=== PATIENT | female | born 1960 | race Caucasian/White ===

== ENCOUNTER 2017-07-06 18:47 | Emergency (ER) | payer MEDICAID ==
[~2017-07-06] VITALS: Ht 157.5 cm; Wt 77.1 kg
[~2017-07-06 18:47] MED LIST: CYCL-1 PO; IBUP-1984 PO; MULT-1179 PO; NIF150C PO
[2017-07-06] MEDS ORDERED: ACET1TAB12 PO (20:53)
[2017-07-06] MEDS ORDERED: FAMO-128 PO (20:53)
[2017-07-06] MEDS ORDERED: IBUP-1984 PO (20:53)
[2017-07-06 21:05] VITALS: BP 163/68
== END 2017-07-06 21:06 | disposition home or self-care (01) ==
LOC: ER 18:48
DX: M25.512 Pain in left shoulder (principal); G89.29 Other chronic pain; F12.10 Cannabis abuse, uncomplicated; F19.10 Other psychoactive substance abuse, uncomplicated; Z88.8 Allergy status to other drugs, medicaments and biological substances; Z98.890 Other specified postprocedural states
CPT/HCPCS: 99282

== ENCOUNTER 2019-03-22 03:54 | Emergency (ER) | payer MEDICAID ==
[~2019-03-22] VITALS: Ht 167.6 cm; Wt 75.5 kg
[~2019-03-22 03:54] MED LIST changes: +ACET1TAB12 PO; +FAMO-128 PO
[2019-03-22 03:58] VITALS: BP 172/104
[2019-03-22] MEDS ORDERED: DIAZ-351 PO (05:11)
[2019-03-22] MEDS ORDERED: METH-360 PO (05:11)
[2019-03-22] MEDS ORDERED: PRED20TA PO (05:11)
[2019-03-22] MEDS ORDERED: diazepam 5mg tablet PO ONE (05:15)
[2019-03-22] MEDS ORDERED: acetaminophen 325mg tablet PO ONE (05:15)
[2019-03-22] MEDS ORDERED: dexamethasone 4mg tablet PO ONE (05:15)
== END 2019-03-22 05:27 | disposition home or self-care (01) ==
LOC: ER 03:54
DX: S39.012A Strain of muscle, fascia and tendon of lower back, initial encounter (principal); M54.42 Lumbago with sciatica, left side; E78.00 Pure hypercholesterolemia, unspecified; G89.29 Other chronic pain; F31.9 Bipolar disorder, unspecified; F12.90 Cannabis use, unspecified, uncomplicated; F15.90 Other stimulant use, unspecified, uncomplicated; Z90.49 Acquired absence of other specified parts of digestive tract; Z98.890 Other specified postprocedural states; Z88.6 Allergy status to analgesic agent; Z88.8 Allergy status to other drugs, medicaments and biological substances; Z79.899 Other long term (current) drug therapy; X58.XXXA Exposure to other specified factors, initial encounter; Y93.89 Activity, other specified; Y92.89 Other specified places as the place of occurrence of the external cause; Y99.8 Other external cause status
CPT/HCPCS: 99284

== ENCOUNTER 2019-07-03 11:24 | Inpatient (IN) | payer MEDICAID ==
[~2019-07-03] VITALS: Ht 161.3 cm; Wt 79.0 kg
[~2019-07-03 11:24] MED LIST changes: +DIAZ-351 PO; +METH-360 PO
[2019-07-03 11:51] LABS: CLARITY,URINE SLIGHTLY CLOUDY (Clear); COLOR,URINE DARK YELLOW (Yellow); GLUCOSE, URINE NEGATIVE (Neg); KETONES,URINE NEGATIVE (Neg); LEUKOCYTE ESTERASE ,URINE NEGATIVE (Neg); NITRITES, URINE POSITIVE (Neg); OCCULT BLOOD,URINE LARGE (Neg); PH,URINE 5.5 (4.8-8.0); PROTEIN,URINE NEGATIVE (Neg); UA COLLECTION TYPE CLN CATCH MIDSTREAM
[2019-07-03 11:57] LABS: BACTERIA,URINE 4+ /HPF (Neg); MUCUS STRANDS MANY /LPF (Neg); SQUAMOUS EPITHELIAL CELL,UR MANY /LPF (FEW)
[2019-07-03] MEDS ORDERED: normal saline 1000ml 1,000 ML IV ONE (12:00)
[2019-07-03] MEDS ORDERED: ondansetron/PF 4mg/2ml inj IV ONE (12:00)
[2019-07-03] MEDS ORDERED: morphine 4 MG/ML inj SYRINge IV ONE (12:00)
[2019-07-03 12:02] LABS: BASOPHILS # (AUTO) 0.1 X10'3 (0-0.2); BASOPHILS % (AUTO) 0.5 % (0-1); EOSINOPHILS # (AUTO) 0.4 X10'3 (0-0.9); EOSINOPHILS % (AUTO) 1.6 % (0-6); HEMOGLOBIN 14.8 g/dl (12.0-16.0); LYMPHOCYTES # (AUTO) 3.2 X10'3 (1.1-4.8); LYMPHOCYTES % (AUTO) 13.6 % (21-51); MEAN CORPUSCULAR HGB CONC 32.9 g/dL (33.0-36.5); MEAN CORPUSCULAR VOLUME 82.1 FL (78-98); MEAN PLATELET VOLUME 8.8 FL (7.4-10.4); MONOCYTES # (AUTO) 1.4 X10'3 (0-0.9); MONOCYTES % (AUTO) 5.9 % (2-12); NEUTROPHILS # (AUTO) 18.4 X10'3 (1.8-7.7); NEUTROPHILS % (AUTO) 78.4 % (42-75); PLATELET COUNT 445 X10'3 (140-440); RED BLOOD COUNT 5.47 X10'6 (4.20-5.60); RED CELL DISTRIBUTION WIDTH 15.1 % (11.5-14.5); WHITE BLOOD COUNT 23.5 X10'3 (4.5-11.0)
[2019-07-03 12:13] LABS: ANION GAP 10 (8-16); BLOOD UREA NITROGEN 15 MG/DL (7-18); BUN/CREATININE RATIO 11.9 (6.6-38.0); CHLORIDE 104 MMOL/L (99-107); CREATININE 1.26 MG/DL (0.40-0.90); GLUCOSE 100 MG/DL (70-104); POTASSIUM 3.5 MMOL/L (3.5-5.1); SODIUM 141 MMOL/L (135-145); TOTAL CARBON DIOXIDE 27.3 MMOL/L (24-32)
[2019-07-03 12:14] LABS: ALANINE AMINOTRANSFERASE 22 U/L (12-78); ALBUMIN 3.5 G/DL (3.4-5.0); ALBUMIN/GLOBULIN RATIO 0.9 (1.1-1.5); ALKALINE PHOSPHATASE 106 IU/L (46-116); ASPARTATE AMINO TRANSFERASE 14 U/L (10-37); BILIRUBIN,TOTAL 0.3 MG/DL (0.1-1.0); CALCIUM 9.2 MG/DL (8.5-10.1); LIPASE 89 U/L (73-393); TOTAL PROTEIN 7.6 G/DL (6.4-8.2); eGFR 44 ML/MIN
--- NOTE | 2019-07-03 12:28 | NUR ---
To CT scan via w/c. IV access, fluid infusion and medications to be completed upon arrival from CT scan.
[2019-07-03] MEDS ORDERED: metroNIDAZOLE-Flagyl 500mg/NS 100 ML IV ONE (13:15)
[2019-07-03] MEDS ORDERED: CefTRIAXone/D5W-Rocephin 1gm 50 ML IV ONE ×2 (13:15→20:00)
[2019-07-03] MEDS ORDERED: magnesium Cl slow-release 64mg tablet PO PRN (13:40)
[2019-07-03] MEDS ORDERED: ondansetron/PF 4mg/2ml inj IV PRN (13:40)
[2019-07-03] MEDS ORDERED: acetaminophen 325mg tablet PO PRN ×2 (13:40)
[2019-07-03] MEDS ORDERED: magnesium hydroxide 30ml (MOM) UD suspension PO PRN (13:40)
[2019-07-03] MEDS ORDERED: magnesium 4gm in 100ml NS 100 ML IV PRN (13:40)
[2019-07-03] MEDS ORDERED: potassium Cl 20 mEq SR tablet PO PRN ×2 (13:40)
[2019-07-03] MEDS ORDERED: mag hydrox/Alum hydrox/simeth 30ml oral suspension PO PRN (13:40)
[2019-07-03] MEDS ORDERED: potassium CL 10mEq/100ml bag 100 ML IV PRN ×2 (13:40)
[2019-07-03] MEDS ORDERED: morphine 2 MG/ML inj. syringe IV PRN ×2 (13:40)
[2019-07-03] MEDS ORDERED: magnesium 2GM in 50ml NS 50 ML IV PRN (13:40)
--- NOTE | 2019-07-03 14:25 | NUR ---
Received report from ED RNJemima
[2019-07-03 15:00] VITALS: BP 163/72
[2019-07-03] MEDS: HYDROcodone/acetaminophen 5mg/325mg tablet PO PRN ×2 (15:27→19:29)
[2019-07-03] MEDS: normal saline 1000ml 1,000 ML IV SCH ×2 (15:30→23:40)
--- NOTE | 2019-07-03 18:30 | NUR ---
Patient in room [facility]. I have received report from Kalyani CARTAGENA and had the opportunity to ask questions and assume patient care. Addendum: 07/03/19 at 2213 by Myla Madera RN Report was actually received from Velvet CARTAGENA-, not Kalyani CARTAGENA
--- NOTE | 2019-07-03 18:30 | NUR ---
Problems reprioritized. Patient report given, questions answered & plan of care reviewed with OSIEL Lanza.
[2019-07-03 19:30] VITALS: BP 109/59
[2019-07-03] MEDS: heparin, porcine 5000 units/ml vial SQ SCH (19:38)
[2019-07-03] MEDS: K and/or MAG REPLACEMENT MC SCH (19:51)
[2019-07-03] MEDS ORDERED: temazepam 15mg capsule PO PRN (21:00)
[2019-07-03] MEDS: metroNIDAZOLE-Flagyl 500mg/NS 100 ML IV SCH (23:39)
[2019-07-04] VITALS: BP 120/50
[2019-07-04] MEDS: HYDROcodone/acetaminophen 5mg/325mg tablet PO PRN ×4 (02:56→20:11)
[2019-07-04] MEDS: normal saline 1000ml 1,000 ML IV SCH ×2 (02:58→14:33)
[2019-07-04 05:21] LABS: BASOPHILS % (AUTO) 0.5 % (0-1); EOSINOPHILS # (AUTO) 0.4 X10'3 (0-0.9); EOSINOPHILS % (AUTO) 4.2 % (0-6); HEMATOCRIT 38.5 % (35.0-45.0); HEMOGLOBIN 12.8 g/dl (12.0-16.0); LYMPHOCYTES # (AUTO) 2.9 X10'3 (1.1-4.8); LYMPHOCYTES % (AUTO) 28.6 % (21-51); MEAN CORPUSCULAR HEMOGLOBIN 27.4 PG (27.0-31.0); MEAN CORPUSCULAR HGB CONC 33.3 g/dL (33.0-36.5); MEAN CORPUSCULAR VOLUME 82.2 FL (78-98); MEAN PLATELET VOLUME 9.1 FL (7.4-10.4); MONOCYTES # (AUTO) 0.7 X10'3 (0-0.9); NEUTROPHILS % (AUTO) 59.7 % (42-75); PLATELET COUNT 369 X10'3 (140-440); RED BLOOD COUNT 4.69 X10'6 (4.20-5.60); RED CELL DISTRIBUTION WIDTH 14.5 % (11.5-14.5)
[2019-07-04 05:58] LABS: ALBUMIN 2.7 G/DL (3.4-5.0); ANION GAP 9 (8-16); BLOOD UREA NITROGEN 13 MG/DL (7-18); BUN/CREATININE RATIO 14.3 (6.6-38.0); CALCIUM 8.5 MG/DL (8.5-10.1); CHLORIDE 109 MMOL/L (99-107); CREATININE 0.91 MG/DL (0.40-0.90); GLUCOSE 82 MG/DL (70-104); MAGNESIUM 1.9 MG/DL (1.5-2.4); POTASSIUM 3.8 MMOL/L (3.5-5.1); SODIUM 142 MMOL/L (135-145); TOTAL CARBON DIOXIDE 24.4 MMOL/L (24-32); eGFR 63 ML/MIN
--- NOTE | 2019-07-04 06:38 | NUR ---
Problems reprioritized. Patient report given, questions answered & plan of care reviewed with Kelly CARTAGENA.
[2019-07-04 07:20] VITALS: BP 103/48
[2019-07-04] MEDS: heparin, porcine 5000 units/ml vial SQ SCH ×2 (07:22→20:12)
[2019-07-04] MEDS: metroNIDAZOLE-Flagyl 500mg/NS 100 ML IV SCH ×3 (07:22→23:32)
[2019-07-04] MEDS: nicotine 14mg patch - 24hr TD SCH (07:23)
[2019-07-04] MEDS: K and/or MAG REPLACEMENT MC SCH ×2 (07:30→19:39)
[2019-07-04] MEDS ORDERED: pantoprazole 40 MG vial IV SCH (08:00)
[2019-07-04] MEDS: CefTRIAXone 2gm/D5W 50ml 50 ML IV SCH (09:24)
[2019-07-04] MEDS ORDERED: aspirin/acetaminophen/caffeine tablet PO PRN (09:30)
[2019-07-04 11:30] VITALS: BP 121/56
--- NOTE | 2019-07-04 18:11 | NUR ---
Problems reprioritized. Patient report given, questions answered & plan of care reviewed with Zoila Cummings RN. Addendum: 07/04/19 at 1812 by Kelly Alanis RN with OSIEL Lanza
--- NOTE | 2019-07-04 18:30 | NUR ---
Patient in room [facility]. I have received report from Kelly CARTAGENA and had the opportunity to ask questions and assume patient care.
[2019-07-04 19:00] VITALS: BP 130/61
[2019-07-04] MEDS: lactobacillus rhamnosus 10,000 MMU CELLS/CAPSULE PO SCH (20:10)
[2019-07-04] MEDS ORDERED: famotidine 20mg tablet PO SCH (21:00)
--- NOTE | 2019-07-04 21:00 | NUR ---
Patient declined having a shower last night. Addendum: 07/05/19 at 0344 by Myla Madera RN Amended: Links added.
[2019-07-04 23:41] LABS: CLARITY,URINE CLEAR (Clear); COLOR,URINE YELLOW (Yellow); GLUCOSE, URINE NEGATIVE (Neg); KETONES,URINE NEGATIVE (Neg); LEUKOCYTE ESTERASE ,URINE TRACE (Neg); NITRITES, URINE NEGATIVE (Neg); OCCULT BLOOD,URINE SMALL (Neg); PROTEIN,URINE NEGATIVE (Neg); UROBILINOGEN,URINE 0.2 E.U/dL (0.2-1.0)
[2019-07-04 23:53] LABS: UA COLLECTION TYPE CLN CATCH MIDSTREAM
[2019-07-04 23:56] LABS: BACTERIA,URINE NONE SEEN /HPF (Neg); MUCUS STRANDS MODERATE /LPF (Neg); RBC,URINE NONE SEEN /HPF (0-2); SQUAMOUS EPITHELIAL CELL,UR MODERATE /LPF (FEW); WBC,URINE 0-4 /HPF (0-4)
[2019-07-05 00:06] VITALS: BP 108/42
[2019-07-05] MEDS: HYDROcodone/acetaminophen 5mg/325mg tablet PO PRN ×2 (00:25→07:07)
[2019-07-05 04:54] LABS: BASOPHILS # (AUTO) 0.1 X10'3 (0-0.2); BASOPHILS % (AUTO) 1.1 % (0-1); EOSINOPHILS # (AUTO) 0.4 X10'3 (0-0.9); EOSINOPHILS % (AUTO) 4.3 % (0-6); HEMATOCRIT 35.6 % (35.0-45.0); LYMPHOCYTES # (AUTO) 2.7 X10'3 (1.1-4.8); LYMPHOCYTES % (AUTO) 26.5 % (21-51); MEAN CORPUSCULAR HEMOGLOBIN 27.6 PG (27.0-31.0); MEAN CORPUSCULAR HGB CONC 33.6 g/dL (33.0-36.5); MEAN PLATELET VOLUME 9.3 FL (7.4-10.4); MONOCYTES # (AUTO) 0.7 X10'3 (0-0.9); MONOCYTES % (AUTO) 6.3 % (2-12); NEUTROPHILS # (AUTO) 6.4 X10'3 (1.8-7.7); NEUTROPHILS % (AUTO) 61.8 % (42-75); PLATELET COUNT 358 X10'3 (140-440); RED BLOOD COUNT 4.34 X10'6 (4.20-5.60); RED CELL DISTRIBUTION WIDTH 14.6 % (11.5-14.5); WHITE BLOOD COUNT 10.3 X10'3 (4.5-11.0)
[2019-07-05 05:01] LABS: ALBUMIN 2.7 G/DL (3.4-5.0); ANION GAP 7 (8-16); BLOOD UREA NITROGEN 10 MG/DL (7-18); BUN/CREATININE RATIO 11.6 (6.6-38.0); CALCIUM 8.6 MG/DL (8.5-10.1); CHLORIDE 111 MMOL/L (99-107); CREATININE 0.86 MG/DL (0.40-0.90); GLUCOSE 86 MG/DL (70-104); MAGNESIUM 1.8 MG/DL (1.5-2.4); POTASSIUM 3.9 MMOL/L (3.5-5.1); SODIUM 145 MMOL/L (135-145); TOTAL CARBON DIOXIDE 27.4 MMOL/L (24-32); eGFR 68 ML/MIN
--- NOTE | 2019-07-05 06:35 | NUR ---
Problems reprioritized. Patient report given, questions answered & plan of care reviewed with Gracia CARTAGENA.
--- NOTE | 2019-07-05 06:46 | NUR ---
Patient in room [facility]. I have received report from Myla CARTAGENA and had the opportunity to ask questions and assume patient care.
[2019-07-05] MEDS ORDERED: aspirin/acetaminophen/caffeine tablet PO PRN (06:50)
[2019-07-05] MEDS: metroNIDAZOLE-Flagyl 500mg/NS 100 ML IV SCH (07:06)
[2019-07-05] MEDS: lactobacillus rhamnosus 10,000 MMU CELLS/CAPSULE PO SCH (07:07)
[2019-07-05] MEDS: nicotine 14mg patch - 24hr TD SCH (07:08)
[2019-07-05] MEDS: heparin, porcine 5000 units/ml vial SQ SCH (07:09)
[2019-07-05] MEDS: K and/or MAG REPLACEMENT MC SCH (08:00)
[2019-07-05] MEDS: CefTRIAXone 2gm/D5W 50ml 50 ML IV SCH (08:28)
[2019-07-05 08:41] VITALS: BP 139/64
[2019-07-05] MEDS ORDERED: METR-159 PO (10:12)
[2019-07-05] MEDS ORDERED: CEFD300C3 PO (10:12)
[2019-07-05] MEDS ORDERED: LACT1CAP26 PO (10:20)
--- NOTE | 2019-07-05 11:33 | NUR ---
Patient D/C home in stable conditions per Dr Dumont. Discharge and medication instructions given to patient. IV removed with cath intact. pt escorted to main lobby on Wheel chair. pt left this hospital via private vehicle accompanied by friend.
== END 2019-07-05 11:24 | disposition home or self-care (01) | DRG 244 ==
LOC: ER 11:24 → ED HOLD 13:40 → SUR 3N 14:58 → CMPBEDREQ 07-04 13:31
PROVIDERS: ADMIT Hospitalist; ATTEND Hospitalist
DX: K57.32 Diverticulitis of large intestine without perforation or abscess without bleeding (principal); E78.00 Pure hypercholesterolemia, unspecified; F12.10 Cannabis abuse, uncomplicated; G89.29 Other chronic pain; G47.00 Insomnia, unspecified; F17.210 Nicotine dependence, cigarettes, uncomplicated; F31.9 Bipolar disorder, unspecified; N39.0 Urinary tract infection, site not specified; Z90.49 Acquired absence of other specified parts of digestive tract; Z88.4 Allergy status to anesthetic agent; Z91.041 Radiographic dye allergy status
CPT/HCPCS: 36415; 74176; 80048; 80053; 81001; 83605; 83690; 83735; 84145; 85025; 87040; 87081; 87088; 96374; 96375; 99285; C9113; G0378; J0696; J1644; J2270; J2405; J3490; J7030

== ENCOUNTER 2019-07-17 01:13 | Emergency (ER) | payer MEDICAID ==
[~2019-07-17] VITALS: Ht 160 cm; Wt 78.2 kg
[~2019-07-17 01:13] MED LIST changes: -ACET1TAB12 PO; +CEFD300C3 PO; -CYCL-1 PO; -DIAZ-351 PO; -IBUP-1984 PO; +LACT1CAP26 PO; -METH-360 PO; +METR-159 PO; -NIF150C PO
[2019-07-17 02:18] LABS: CLARITY,URINE SLIGHTLY CLOUDY (Clear); COLOR,URINE AMBER (Yellow); GLUCOSE, URINE NEGATIVE (Neg); KETONES,URINE NEGATIVE (Neg); LEUKOCYTE ESTERASE ,URINE TRACE (Neg); OCCULT BLOOD,URINE SMALL (Neg); PROTEIN,URINE NEGATIVE (Neg); UROBILINOGEN,URINE 0.2 E.U/dL (0.2-1.0)
[2019-07-17] MEDS ORDERED: iohexol 350MG/ML 100ml bottle IV ONE (02:20)
[2019-07-17 02:21] LABS: UA COLLECTION TYPE CLN CATCH MIDSTREAM
[2019-07-17 02:23] LABS: NITRITES, URINE NEGATIVE (Neg)
[2019-07-17 02:27] LABS: BASOPHILS # (AUTO) 0.2 X10'3 (0-0.2); BASOPHILS % (AUTO) 1.2 % (0-1); EOSINOPHILS # (AUTO) 0.3 X10'3 (0-0.9); EOSINOPHILS % (AUTO) 2.1 % (0-6); HEMATOCRIT 43.2 % (35.0-45.0); HEMOGLOBIN 14.4 g/dl (12.0-16.0); LYMPHOCYTES # (AUTO) 3.8 X10'3 (1.1-4.8); LYMPHOCYTES % (AUTO) 30.6 % (21-51); MEAN CORPUSCULAR HEMOGLOBIN 27.2 PG (27.0-31.0); MEAN CORPUSCULAR HGB CONC 33.2 g/dL (33.0-36.5); MEAN CORPUSCULAR VOLUME 81.9 FL (78-98); MEAN PLATELET VOLUME 8.8 FL (7.4-10.4); MONOCYTES # (AUTO) 0.8 X10'3 (0-0.9); MONOCYTES % (AUTO) 6.4 % (2-12); NEUTROPHILS # (AUTO) 7.4 X10'3 (1.8-7.7); NEUTROPHILS % (AUTO) 59.7 % (42-75); PLATELET COUNT 524 X10'3 (140-440); RED BLOOD COUNT 5.28 X10'6 (4.20-5.60); RED CELL DISTRIBUTION WIDTH 15.3 % (11.5-14.5); WHITE BLOOD COUNT 12.5 X10'3 (4.5-11.0)
[2019-07-17 02:30] LABS: ALANINE AMINOTRANSFERASE 24 U/L (12-78); ALBUMIN 3.7 G/DL (3.4-5.0); ALBUMIN/GLOBULIN RATIO 0.9 (1.1-1.5); ALKALINE PHOSPHATASE 77 IU/L (46-116); ANION GAP 8 (8-16); ASPARTATE AMINO TRANSFERASE 18 U/L (10-37); BILIRUBIN,TOTAL 0.2 MG/DL (0.1-1.0); BLOOD UREA NITROGEN 18 MG/DL (7-18); BUN/CREATININE RATIO 17.8 (6.6-38.0); CALCIUM 9.4 MG/DL (8.5-10.1); CHLORIDE 104 MMOL/L (99-107); CREATININE 1.01 MG/DL (0.40-0.90); GLUCOSE 106 MG/DL (70-104); LIPASE 79 U/L (73-393); POTASSIUM 4.2 MMOL/L (3.5-5.1); SODIUM 138 MMOL/L (135-145); TOTAL CARBON DIOXIDE 26.2 MMOL/L (24-32); TOTAL PROTEIN 7.9 G/DL (6.4-8.2); eGFR 56 ML/MIN
[2019-07-17 02:31] LABS: BACTERIA,URINE FEW /HPF (Neg); MUCUS STRANDS MANY /LPF (Neg); RBC,URINE 0-2 /HPF (0-2); SQUAMOUS EPITHELIAL CELL,UR MANY /LPF (FEW); WBC,URINE 0-4 /HPF (0-4)
[2019-07-17 03:42] VITALS: BP 147/67
== END 2019-07-17 03:45 | disposition home or self-care (01) ==
LOC: ER 01:13
DX: R10.32 Left lower quadrant pain (principal); E78.00 Pure hypercholesterolemia, unspecified; G89.29 Other chronic pain; F31.9 Bipolar disorder, unspecified; F12.90 Cannabis use, unspecified, uncomplicated; F15.90 Other stimulant use, unspecified, uncomplicated; Z90.49 Acquired absence of other specified parts of digestive tract; Z98.890 Other specified postprocedural states; Z88.8 Allergy status to other drugs, medicaments and biological substances; Z79.899 Other long term (current) drug therapy
CPT/HCPCS: 36415; 74177; 80053; 81001; 83690; 85025; 99284; Q9967

== ENCOUNTER 2021-08-01 14:10 | Emergency (ER) | payer MEDICAID ==
[~2021-08-01] VITALS: Ht 160 cm; Wt 78.6 kg
[~2021-08-01 14:10] MED LIST changes: -CEFD300C3 PO; -METR-159 PO
[2021-08-01 14:17] VITALS: BP 145/45
[2021-08-01 15:03] LABS: BASOPHILS # (AUTO) 0.1 X10'3 (0-0.2); BASOPHILS % (AUTO) 1.2 % (0-1); EOSINOPHILS # (AUTO) 0.3 X10'3 (0-0.9); EOSINOPHILS % (AUTO) 2.4 % (0-6); HEMATOCRIT 43.7 % (35.0-45.0); HEMOGLOBIN 14.3 g/dl (12.0-16.0); LYMPHOCYTES # (AUTO) 3.2 X10'3 (1.1-4.8); LYMPHOCYTES % (AUTO) 28.7 % (21-51); MEAN CORPUSCULAR HEMOGLOBIN 27.4 PG (27.0-31.0); MEAN CORPUSCULAR HGB CONC 32.8 g/dL (33.0-36.5); MEAN CORPUSCULAR VOLUME 83.5 FL (78-98); MEAN PLATELET VOLUME 8.7 FL (7.4-10.4); MONOCYTES # (AUTO) 0.8 X10'3 (0-0.9); MONOCYTES % (AUTO) 6.8 % (2-12); NEUTROPHILS # (AUTO) 6.8 X10'3 (1.8-7.7); NEUTROPHILS % (AUTO) 60.9 % (42-75); PLATELET COUNT 401 X10'3 (140-440); RED BLOOD COUNT 5.23 X10'6 (4.20-5.60); RED CELL DISTRIBUTION WIDTH 14.9 % (11.5-14.5); WHITE BLOOD COUNT 11.2 X10'3 (4.5-11.0)
[2021-08-01 15:13] LABS: ALANINE AMINOTRANSFERASE 19 U/L (12-78); ALBUMIN 3.7 G/DL (3.4-5.0); ALBUMIN/GLOBULIN RATIO 0.9 (1.1-1.5); ALKALINE PHOSPHATASE 92 IU/L (46-116); ANION GAP 8 (8-16); ASPARTATE AMINO TRANSFERASE 14 U/L (10-37); BILIRUBIN,TOTAL 0.6 MG/DL (0.1-1.0); BLOOD UREA NITROGEN 18 MG/DL (7-18); BUN/CREATININE RATIO 19.1 (6.6-38.0); CHLORIDE 105 MMOL/L (99-107); CREATININE 0.94 MG/DL (0.40-0.90); GLUCOSE 90 MG/DL (70-104); POTASSIUM 4.4 MMOL/L (3.5-5.1); SODIUM 142 MMOL/L (135-145); TOTAL CARBON DIOXIDE 29.3 MMOL/L (24-32); TOTAL PROTEIN 7.6 G/DL (6.4-8.2); eGFR 61 ML/MIN
--- NOTE | 2021-08-01 17:18 | NUR ---
Pt found to not be in her room. Security cameras reviewed, pt seen ambulating out of dept with steady gait roughly thirty mins ago.
== END 2021-08-01 17:20 | disposition home or self-care (01) ==
LOC: ER 14:11
DX: R07.9 Chest pain, unspecified (principal); F15.10 Other stimulant abuse, uncomplicated; F17.210 Nicotine dependence, cigarettes, uncomplicated; E78.00 Pure hypercholesterolemia, unspecified; F12.10 Cannabis abuse, uncomplicated; Z88.8 Allergy status to other drugs, medicaments and biological substances; Z88.6 Allergy status to analgesic agent; Z91.09 Other allergy status, other than to drugs and biological substances
CPT/HCPCS: 36415; 71045; 80053; 83880; 84484; 85025; 93005; 99285

== ENCOUNTER 2023-11-18 07:20 | Day surgery (SDC) | payer MEDICAID ==
[~2023-11-18] VITALS: Ht 160 cm; Wt 83.2 kg
[2023-11-18] VITALS (13 sets, daily range): BP systolic 108–171; BP diastolic 38–91; PULSE 81–101; RESP 10–14; TEMP 98.6; O2SAT 91–94
[2023-11-18] MEDS ORDERED: nitroGLYCERIN 0.4mg SUBLingual tab SL PRN (07:40)
[2023-11-18] MEDS ORDERED: PRED20TA PO (07:44)
[2023-11-18] MEDS ORDERED: ASPI-611 PO (07:44)
[2023-11-18] MEDS ORDERED: NITR0.4T48 SL (07:44)
[2023-11-18 08:12] LABS: BASOPHILS # (AUTO) 0.1 X10'3 (0-0.2); BASOPHILS % (AUTO) 0.5 % (0-1); EOSINOPHILS % (AUTO) 0 % (0-6); HEMATOCRIT 45.6 % (35.0-45.0); HEMOGLOBIN 15.1 g/dl (12.0-16.0); MEAN CORPUSCULAR HEMOGLOBIN 27.7 PG (27.0-31.0); MEAN CORPUSCULAR HGB CONC 33.1 g/dL (33.0-36.5); MEAN CORPUSCULAR VOLUME 83.9 FL (78-98); MEAN PLATELET VOLUME 8.9 FL (7.4-10.4); MONOCYTES # (AUTO) 0.1 X10'3 (0-0.9); MONOCYTES % (AUTO) 1.1 % (2-12); NEUTROPHILS # (AUTO) 11.7 X10'3 (1.8-7.7); NEUTROPHILS % (AUTO) 90.4 % (42-75); PLATELET COUNT 382 X10'3 (140-440); RED BLOOD COUNT 5.43 X10'6 (4.20-5.60); RED CELL DISTRIBUTION WIDTH 15.2 % (11.5-14.5); WHITE BLOOD COUNT 12.9 X10'3 (4.5-11.0)
[2023-11-18] MEDS: METHYLPREDNISOLONE SOD SUCC 125 MG/2ML INJ. IV ONE (08:21)
[2023-11-18] MEDS: LORazepam 0.5 MG tablet PO PRN (08:22)
[2023-11-18] MEDS ORDERED: midazolam 1 mg/ML 2ml injection ONE ×3 (08:22→10:16)
[2023-11-18] MEDS: diphenhydrAMINE 25mg capsule PO PRN (08:22)
[2023-11-18] MEDS ORDERED: LIDOcaine 1% (10mg/ml) 2ml vial ONE (08:22)
[2023-11-18] MEDS ORDERED: verapamil 2.5 mg/ml inj IV ONE ×2 (08:22→10:10)
[2023-11-18] MEDS ORDERED: fentaNYL/PF 50MCG/1 ML 2ML syringe ONE ×2 (08:22→09:34)
[2023-11-18] MEDS ORDERED: heparin 1,000unit/ml 10ml vial 0 ML ONE (08:23)
[2023-11-18] MEDS: normal saline 1,000 ML IV SCH (08:24)
[2023-11-18] MEDS ORDERED: nitroGLYCERIN 500mcg/5mL D5W 5 ML IV ONE ×2 (08:24→10:07)
[2023-11-18] MEDS ORDERED: LIDOcaine 1% 30ml preserv. free vial ONE (08:27)
[2023-11-18] MEDS ORDERED: iohexol 350 MG/ML 50ML vial IV ONE ×3 (08:28→09:55)
[2023-11-18] MEDS ORDERED: iohexol 350MG/ML 100ml bottle IV ONE (08:28)
[2023-11-18 08:37] LABS: ALBUMIN 3.6 G/DL (3.4-5.0); ANION GAP 12 (8-16); BLOOD UREA NITROGEN 13 MG/DL (7-18); BUN/CREATININE RATIO 15.9 (10.0-20.0); CHLORIDE 107 MMOL/L (99-107); CREATININE 0.82 MG/DL (0.40-0.90); GLUCOSE 132 MG/DL (70-104); POTASSIUM 3.6 MMOL/L (3.5-5.1); PRO BRAIN NATRIURETIC PEPTIDE 1197 PG/ML (0-125); SODIUM 140 MMOL/L (135-145); eGFR 70 ML/MIN
[2023-11-18 09:19] LABS: APTT 25 SECONDS (22-32); PROTHROMBIN TIME 10.7 SECONDS (9.0-12.0)
[2023-11-18] MEDS ORDERED: hydrALAZINE 20mg/ml inj. IV ONE (09:42)
[2023-11-18] MEDS ORDERED: enalaprilat dihydrate 2.5mg/2ml vial IV ONE ×4 (10:02→10:13)
[2023-11-18] MEDS ORDERED: nitroGLYCERIN-Tridil 50MG/D5W 250 ML IV ONE (10:11)
[2023-11-18] MEDS ORDERED: ondansetron/PF 4mg/2ml inj ONE (10:37)
[2023-11-18] MEDS ORDERED: nitroGLYCERIN-Tridil 50MG/D5W 250 ML IV SCH (11:10)
[2023-11-18] MEDS ORDERED: HYDROcodone/acetaminophen 10/325mg tab PO PRN (11:15)
[2023-11-18] MEDS ORDERED: ondansetron/PF 4mg/2ml inj IV PRN (11:15)
[2023-11-18] MEDS ORDERED: HYDROcodone/acetaminophen 5mg/325mg tablet PO PRN (11:15)
[2023-11-18] MEDS ORDERED: proCHLORperazine 10 MG/2 ml inj IV PRN (11:15)
[2023-11-18] MEDS ORDERED: OXAZEpam 15mg capsule PO PRN (11:15)
== END 2023-11-18 17:45 | disposition home or self-care (01) ==
LOC: SSTAY O 07:20
PROVIDERS: ATTEND Internal Medicine Cardiovascular Disease
DX: R94.39 Abnormal result of other cardiovascular function study (principal); I25.119 Atherosclerotic heart disease of native coronary artery with unspecified angina pectoris; I11.9 Hypertensive heart disease without heart failure; J44.9 Chronic obstructive pulmonary disease, unspecified; F25.9 Schizoaffective disorder, unspecified; I25.2 Old myocardial infarction
CPT/HCPCS: 36415; 71046; 80048; 83880; 85025; 85610; 85730; 93005; 93458; 93567; 99152; 99153; J0360; J1644; J2250; J2405; J2919; J3010; J3490; J7030; Q0163; Q9967; A4615; A6258; C1760; J2930

== ENCOUNTER 2023-12-21 05:32 | Inpatient (IN) | payer MEDICAID ==
[2023-12-17 14:35] VITALS: PULSE 66; RESP 16; O2SAT 96
[2023-12-17 15:11] LABS: BASOPHILS # (AUTO) 0.2 X10'3 (0-0.2); BASOPHILS % (AUTO) 1.3 % (0-1); EOSINOPHILS # (AUTO) 0.3 X10'3 (0-0.9); EOSINOPHILS % (AUTO) 2.3 % (0-6); LYMPHOCYTES # (AUTO) 2.5 X10'3 (1.1-4.8); LYMPHOCYTES % (AUTO) 20.7 % (21-51); MEAN CORPUSCULAR HEMOGLOBIN 27.2 PG (27.0-31.0); MEAN CORPUSCULAR HGB CONC 32.8 g/dL (33.0-36.5); MEAN CORPUSCULAR VOLUME 82.9 FL (78-98); MEAN PLATELET VOLUME 8.5 FL (7.4-10.4); MONOCYTES # (AUTO) 0.7 X10'3 (0-0.9); MONOCYTES % (AUTO) 5.5 % (2-12); NEUTROPHILS # (AUTO) 8.4 X10'3 (1.8-7.7); NEUTROPHILS % (AUTO) 70.2 % (42-75); PRE OP HEMATOCRIT 44.8 % (35.0-45.0); PRE OP HEMOGLOBIN 14.7 g/dL (12.0-16.0); PRE OP PLATELET COUNT 362 X10'3 (140-440)
[2023-12-17 15:24] LABS: PRE OP PROTIME 10.9 SECONDS (9.0-12.0)
[2023-12-17 15:26] LABS: ALBUMIN 3.5 G/DL (3.4-5.0); ALBUMIN/GLOBULIN RATIO 0.9 (1.1-1.5); ALKALINE PHOSPHATASE 113 IU/L (46-116); BLOOD UREA NITROGEN 13 MG/DL (7-18); BUN/CREATININE RATIO 15.9 (10.0-20.0); CALCIUM 9.2 MG/DL (8.5-10.1); CHLORIDE 106 MMOL/L (99-107); CREATININE 0.82 MG/DL (0.40-0.90); PRE OP ALT 18 U/L (30-65); PRE OP ANION GAP 11 (8-16); PRE OP AST 12 U/L (10-37); PRE OP BILIRUB, TOTAL 0.6 MG/DL (0.0-1.0); PRE OP GLUCOSE 99 MG/DL (70-104); PRE OP POTASSIUM 3.8 MMOL/L (3.4-5.1); PRE OP SODIUM 140 MMOL/L (135-145); TOTAL CARBON DIOXIDE 23.2 MMOL/L (24-32); TOTAL PROTEIN 7.4 G/DL (6.4-8.2); eGFR 70 ML/MIN
[2023-12-17 15:27] LABS: HEMOGLOBIN A1C 5.5 % (4.5-6.2)
[~2023-12-21] VITALS: Ht 160 cm; Wt 85.3 kg
[2023-12-21] VITALS (26 sets, daily range): BP systolic 82–168; BP diastolic 37–70; PULSE 58–89; RESP 12–23; TEMP 98.3; O2SAT 94–99
[~2023-12-21 05:32] MED LIST changes: +ASPI-611 PO; +DILT-35 PO; -FAMO-128 PO; +Insulin Reg/NS 100units/100mL 100 ML IV SCH; -LACT1CAP26 PO; -MULT-1179 PO; +NITR0.4T48 SL; +dextrose 50%-water 50ml dispensing syringe IV PRN; +insulin glargine (Lantus) pen - multi-dose SQ PRN; +metoprolol tartrate 12.5mg (1/2 tablet) PO ONE
[2023-12-21] MEDS: cefazolin 2gm/D5W 100mL 100 ML IV ONE (06:05)
[2023-12-21] MEDS: ringers solution, lacted 1,000 ML IV SCH (06:13)
[2023-12-21] MEDS: famotidine 20mg tablet PO ONE (06:14)
[2023-12-21 06:45] LABS: ABG BASE EXCESS -1.6 mmol/L (-2.0-2.0); ABG HCO3 22.2 mmol/L (22.0-26.0); ABG OXYGEN SATURATION 94.9 % (94-97); ABG PCO2 (T) 34.9 mmHg (32.0-45.0); ABG PH (T) 7.421 (7.350-7.450); ALLEN'S TEST POSITIVE; FCOHb 2.5 % (0.0-3.9); FMetHb 0.3 % (0.0-1.5); FO2Hb 92.2 % (94-97); MODE ROOM AIR; TOTAL HEMOGLOBIN 15.4 G/dl (12.0-16.0)
[2023-12-21] MEDS: albuterol 2.5 MG/3 ML nebule NEB ONE (06:57)
[2023-12-21 07:25] LABS: BILIRUBIN,URINE NEGATIVE (Neg); CLARITY,URINE SLIGHTLY CLOUDY (Clear); COLOR,URINE YELLOW (Yellow); GLUCOSE, URINE NEGATIVE (Neg); KETONES,URINE NEGATIVE (Neg); LEUKOCYTE ESTERASE ,URINE NEGATIVE (Neg); NITRITES, URINE POSITIVE (Neg); OCCULT BLOOD,URINE SMALL (Neg); PH,URINE 5.5 (4.8-8.0); PROTEIN,URINE NEGATIVE (Neg); UROBILINOGEN,URINE 0.2 E.U/dL (0.2-1.0)
[2023-12-21 07:31] LABS: UA COLLECTION TYPE CLN CATCH MIDSTREAM
[2023-12-21 07:33] LABS: BACTERIA,URINE 4+ /HPF (Neg); MUCUS STRANDS NONE SEEN /LPF (Neg); RBC,URINE 0-2 /HPF (0-2); SQUAMOUS EPITHELIAL CELL,UR MODERATE /LPF (FEW); WBC,URINE 50-100 /HPF (0-4)
[2023-12-21] MEDS ORDERED: isoflurane 100ml inhalation liquid IH ONE (07:55)
[2023-12-21] MEDS: midazolam 1 mg/ML 2ml injection IV ONE (07:58)
[2023-12-21] MEDS ORDERED: fentaNYL /PF 50mcg/ml 5ml ampule ONE ×2 (08:09)
[2023-12-21] MEDS ORDERED: SUfentanil 50mcg/ml 1ml amp IV ONE (08:14)
[2023-12-21 08:48] LABS: ABG BASE EXCESS -3.6 mmol/L (-2.0-2.0); ABG HCO3 21.3 mmol/L (22.0-26.0); ABG OXYGEN SATURATION 99.7 % (94-97); ABG PCO2 37.9 mmHg (32.0-45.0); ABG PH 7.367 (7.350-7.450); ABG PO2 378.5 mmHg (75.0-100.0); CL (ABG) 107 mmol/L (99-107); FCOHb 2.4 % (0.0-3.9); FHHb 0.3 % (0.0-5.0); FMetHb 0.3 % (0.0-1.5); GLUCOSE (ABG) 152 mg/dl (70-104); IONIZED CA (ABG) 1.17 mmol/L (1.10-1.30); K (ABG) 3.3 mmol/L (3.5-5.1); TOTAL HEMOGLOBIN 13.2 G/dl (12.0-16.0)
[2023-12-21] MEDS ORDERED: rocuronium 10mg/ml inj IV ONE ×2 (08:54)
[2023-12-21 08:55] LABS: ACT @ 1.70 U 270 SEC (193-297); ACT @ 2.84 U 386 SEC (260-420); BASELINE ACT 131 SEC (101-148); PATIENT WEIGHT 83.0k KG
[2023-12-21] MEDS: BUPIVAcaine/PF 2.5 mg/ml (0.25%) 30ml vial IJ ONE (09:44)
[2023-12-21 09:58] LABS: ABG BASE EXCESS -4.3 mmol/L (-2.0-2.0); ABG HCO3 21.2 mmol/L (22.0-26.0); ABG OXYGEN SATURATION 92.5 % (94-97); ABG PCO2 40.8 mmHg (32.0-45.0); ABG PH 7.334 (7.350-7.450); ABG PO2 67.5 mmHg (75.0-100.0); CL (ABG) 108 mmol/L (99-107); FCOHb 2.3 % (0.0-3.9); FHHb 7.3 % (0.0-5.0); FMetHb 0.3 % (0.0-1.5); FO2Hb 90.1 % (94-97); GLUCOSE (ABG) 78 mg/dl (70-104); IONIZED CA (ABG) 1.16 mmol/L (1.10-1.30); TOTAL HEMOGLOBIN 11.8 G/dl (12.0-16.0)
[2023-12-21] MEDS ORDERED: ipratropium/albuterol 3ml nebule IH PRN (10:00)
[2023-12-21 10:31] LABS: ABG HCO3 21.8 mmol/L (22.0-26.0); ABG OXYGEN SATURATION 99.5 % (94-97); ABG PCO2 37.9 mmHg (32.0-45.0); ABG PH 7.378 (7.350-7.450); ABG PO2 277.8 mmHg (75.0-100.0); CL (ABG) 108 mmol/L (99-107); FCOHb 1.7 % (0.0-3.9); FHHb 0.5 % (0.0-5.0); FMetHb 0.3 % (0.0-1.5); FO2Hb 97.5 % (94-97); GLUCOSE (ABG) 75 mg/dl (70-104); IONIZED CA (ABG) 1.14 mmol/L (1.10-1.30); K (ABG) 3.4 mmol/L (3.5-5.1); TOTAL HEMOGLOBIN 11.4 G/dl (12.0-16.0)
[2023-12-21 11:08] LABS: ABG BASE EXCESS -5.3 mmol/L (-2.0-2.0); ABG OXYGEN SATURATION 99.7 % (94-97); ABG PH 7.339 (7.350-7.450); ABG PO2 233.1 mmHg (75.0-100.0); CL (ABG) 108 mmol/L (99-107); FCOHb 1.8 % (0.0-3.9); FHHb 0.3 % (0.0-5.0); FMetHb 0.3 % (0.0-1.5); FO2Hb 97.6 % (94-97); GLUCOSE (ABG) 106 mg/dl (70-104); IONIZED CA (ABG) 1.13 mmol/L (1.10-1.30); K (ABG) 3.5 mmol/L (3.5-5.1); TOTAL HEMOGLOBIN 10.8 G/dl (12.0-16.0)
[2023-12-21 12:03] LABS: ABG BASE EXCESS -5.7 mmol/L (-2.0-2.0); ABG HCO3 20.3 mmol/L (22.0-26.0); ABG OXYGEN SATURATION 96.1 % (94-97); ABG PH 7.303 (7.350-7.450); ABG PO2 94.4 mmHg (75.0-100.0); CL (ABG) 107 mmol/L (99-107); FCOHb 0.9 % (0.0-3.9); FHHb 3.9 % (0.0-5.0); FMetHb 0.3 % (0.0-1.5); FO2Hb 94.9 % (94-97); GLUCOSE (ABG) 117 mg/dl (70-104); IONIZED CA (ABG) 1.14 mmol/L (1.10-1.30); K (ABG) 3.4 mmol/L (3.5-5.1); TOTAL HEMOGLOBIN 10.8 G/dl (12.0-16.0)
[2023-12-21 12:06] LABS: ACTIVATED CLOTTING TIME 115 SEC (101-148)
[2023-12-21] MEDS: BUPIVACAINE liposomal/PF 13.3 MG/ML vial IM ONE (12:34)
[2023-12-21] MEDS: LORazepam 2 mg/ml vial ONE (12:34)
[2023-12-21] MEDS ORDERED: albumin (Human) 5% 250ml 250 ML IV ONE ×4 (12:35→12:46)
[2023-12-21] MEDS: heparin 10,000 units/1 ML INJ ONE (12:35)
[2023-12-21] MEDS: ceFAZolin 1000mg inj ONE (12:35)
[2023-12-21] MEDS: BUPIVAcaine/PF 2.5mg/ml (0.25%) 10ml vial ONE (12:35)
[2023-12-21] MEDS: epiNEPHrine 1 mg/ml inj ONE (12:36)
[2023-12-21] MEDS: Insulin Reg/NS 100units/100mL 100 ML IV SCH ×2 (12:36→14:09)
[2023-12-21] MEDS ORDERED: metoclopramide 5 mg/ml inj IV PRN (13:00)
[2023-12-21] MEDS ORDERED: nitroGLYCERIN-Tridil 50MG/D5W 250 ML IV PRN (13:00)
[2023-12-21] MEDS ORDERED: potassium Cl 20 mEq SR tablet PO PRN (13:00)
[2023-12-21] MEDS ORDERED: dextrose 50%-water 50ml dispensing syringe IV PRN (13:00)
[2023-12-21] MEDS ORDERED: sodium phosphate inj. 30 MMOL in dextrose 5%-water 250 ML IV PRN (13:00)
[2023-12-21] MEDS ORDERED: normal saline 250ml IV soln 250 ML IV PRN (13:00)
[2023-12-21] MEDS ORDERED: bisacodyl 10mg suppository rectal RC PRN (13:00)
[2023-12-21] MEDS ORDERED: insulin glargine (Lantus) pen - multi-dose SQ PRN (13:00)
[2023-12-21] MEDS ORDERED: sodium phosphate inj. 15 MMOL in dextrose 5%-water 250 ML IV PRN (13:00)
[2023-12-21] MEDS ORDERED: mineral oil 133ml enema RC PRN (13:00)
[2023-12-21] MEDS ORDERED: Neutra Phos packet PO PRN (13:00)
[2023-12-21] MEDS ORDERED: magnesium hydroxide 30ml (MOM) UD suspension PO PRN (13:00)
[2023-12-21] MEDS ORDERED: potassium Cl 40MEQ/1/2NS 520ml 520 ML IV PRN (13:00)
[2023-12-21] MEDS ORDERED: potassium CL 10mEq/100ml bag 100 ML IV PRN (13:00)
[2023-12-21] MEDS ORDERED: acetaminophen 325mg tablet PO PRN (13:00)
[2023-12-21] MEDS ORDERED: potassium Cl 40MEQ/270ML bag 250 ML IV PRN (13:00)
[2023-12-21 13:29] LABS: ABG BASE EXCESS -2.5 mmol/L (-2.0-2.0); ABG HCO3 22.5 mmol/L (22.0-26.0); ABG OXYGEN SATURATION 94.9 % (94-97); ABG PCO2 (T) 36.7 mmHg (32.0-45.0); ABG PH (T) 7.398 (7.350-7.450); ABG PO2 (T) 69.4 mmHg (75.0-100.0); FCOHb 1.2 % (0.0-3.9); FMetHb 0.3 % (0.0-1.5); FO2Hb 93.5 % (94-97); MODE SIMV-VC; PATIENT TEMPERATURE 35.2; PEEP 5 cm H2O; RESPIRATORY RATE 12 b/min; TIDAL VOLUME 550 mL; TOTAL HEMOGLOBIN 11.1 G/dl (12.0-16.0)
[2023-12-21 13:34] LABS: ALANINE AMINOTRANSFERASE 19 U/L (12-78); ALBUMIN 2.8 G/DL (3.4-5.0); ALBUMIN/GLOBULIN RATIO 1.5 (1.1-1.5); ALKALINE PHOSPHATASE 51 IU/L (46-116); ANION GAP 8 (8-16); ASPARTATE AMINO TRANSFERASE 11 U/L (10-37); BILIRUBIN,TOTAL 0.6 MG/DL (0.1-1.0); BLOOD UREA NITROGEN 10 MG/DL (7-18); BUN/CREATININE RATIO 14.5 (10.0-20.0); CALCIUM 7.5 MG/DL (8.5-10.1); CHLORIDE 111 MMOL/L (99-107); CREATININE 0.69 MG/DL (0.40-0.90); GLUCOSE 137 MG/DL (70-104); MAGNESIUM 1.2 MG/DL (1.5-2.4); PHOSPHORUS 3.5 MG/DL (2.3-4.5); POTASSIUM 3.1 MMOL/L (3.5-5.1); SODIUM 143 MMOL/L (135-145); TOTAL CARBON DIOXIDE 24.2 MMOL/L (24-32); TOTAL PROTEIN 4.7 G/DL (6.4-8.2); eCRCL 69 ML/MIN; eGFR 86 ML/MIN
[2023-12-21 13:39] LABS: BASOPHILS # (AUTO) 0.1 X10'3 (0-0.2); BASOPHILS % (AUTO) 0.4 % (0-1); EOSINOPHILS # (AUTO) 0.1 X10'3 (0-0.9); EOSINOPHILS % (AUTO) 0.4 % (0-6); HEMATOCRIT 29.4 % (35.0-45.0); HEMOGLOBIN 9.5 g/dl (12.0-16.0); LYMPHOCYTES # (AUTO) 1.7 X10'3 (1.1-4.8); LYMPHOCYTES % (AUTO) 8.7 % (21-51); MEAN CORPUSCULAR HEMOGLOBIN 26.9 PG (27.0-31.0); MEAN CORPUSCULAR HGB CONC 32.2 g/dL (33.0-36.5); MEAN CORPUSCULAR VOLUME 83.6 FL (78-98); MEAN PLATELET VOLUME 8.7 FL (7.4-10.4); MONOCYTES # (AUTO) 0.8 X10'3 (0-0.9); MONOCYTES % (AUTO) 4.2 % (2-12); NEUTROPHILS # (AUTO) 16.9 X10'3 (1.8-7.7); NEUTROPHILS % (AUTO) 86.3 % (42-75); PLATELET COUNT 198 X10'3 (140-440); RED BLOOD COUNT 3.52 X10'6 (4.20-5.60); RED CELL DISTRIBUTION WIDTH 15.2 % (11.5-14.5); WHITE BLOOD COUNT 19.6 X10'3 (4.5-11.0)
[2023-12-21 14:06] LABS: APTT 27 SECONDS (22-32); FIBRINOGEN 160 MG/DL (177-424); INR 1.3 INR; PROTHROMBIN TIME 13.4 SECONDS (9.0-12.0)
[2023-12-21] MEDS: acetaminophen 1,000mg/100ml IV 100 ML IV SCH (14:06)
[2023-12-21] MEDS: gabapentin 300mg capsule PO SCH (14:07)
[2023-12-21] MEDS: magnesium sulf-water 4G/100mL 100 ML IV PRN (14:07)
[2023-12-21] MEDS: sodium bicarbonate (8.4%) 1 mEq/ml syringe IV ONE ×2 (14:07→16:53)
[2023-12-21] MEDS: sodium chloride 0.45% 1,000 ML IV SCH (14:07)
[2023-12-21] MEDS: potassium Cl 20mEq/100mL bag 100 ML IV PRN (14:08)
[2023-12-21] MEDS: niCARDipine-NS 40mg/200ml IVPB 200 ML IV PRN (14:10)
[2023-12-21] MEDS: albumin (Human) 5% 250ml 250 ML IV PRN (14:28)
[2023-12-21] MEDS: niCARDipine-NS 40mg/200ml IVPB 200 ML IV SCH (14:35)
[2023-12-21] MEDS: dexmedetomidin/NS 400mcg/100ml 100 ML IV PRN (14:38)
[2023-12-21] MEDS: ipratropium/albuterol 3ml nebule NEB SCH (14:40)
[2023-12-21] MEDS: COMMUNICATION ORDER 1 EA MISC MC ONE ×2 (15:12→16:26)
[2023-12-21] MEDS: DOPamine 400mg/D5W 250ml 250 ML IV SCH (15:44)
[2023-12-21] MEDS: magnesium sulf-water 2g/50mL 50 ML IV PRN (15:54)
[2023-12-21] MEDS ORDERED: calcium gluconate inj. 1 GM in normal saline 100ml IV soln 40 ML IV ONE ×2 (16:00→16:30)
[2023-12-21] MEDS: ceFAZolin/D5W- 1GM premix 50 ML IV SCH (16:02)
[2023-12-21] MEDS: CALCIUM GLUC 1gm/50ml NACL,iso 50 ML IV SCH (16:09)
[2023-12-21] MEDS: NORMAL SALINE IV ONE (16:10)
[2023-12-21] MEDS: hydrocortisone sod succ/PF 100mg/2ml inj. IV ONE (16:25)
[2023-12-21] MEDS: hydrocortisone sod succ/PF 250mg/2ml inj. IV ONE (16:26)
[2023-12-21 16:28] LABS: ABG BASE EXCESS -2.3 mmol/L (-2.0-2.0); ABG HCO3 22.8 mmol/L (22.0-26.0); ABG OXYGEN SATURATION 96.1 % (94-97); ABG PCO2 (T) 39.3 mmHg (32.0-45.0); ABG PH (T) 7.378 (7.350-7.450); ABG PO2 (T) 81.5 mmHg (75.0-100.0); FCOHb 0.4 % (0.0-3.9); FHHb 3.9 % (0.0-5.0); FMetHb 0.3 % (0.0-1.5); FO2Hb 95.4 % (94-97); MODE SIMV-VC; PATIENT TEMPERATURE 36.3; PEEP 8 cm H2O; RESPIRATORY RATE 12 b/min; TIDAL VOLUME 550 mL
[2023-12-21] MEDS: NORepinephrine 8mg/ 250ml NS 250 ML IV SCH (16:54)
[2023-12-21] MEDS: furosemide 40mg/4ml inj IV ONE (16:55)
[2023-12-21] MEDS: HYDROmorphone 1 mg/ml syringe IV PRN (17:01)
[2023-12-21 19:08] LABS: BASOPHILS # (AUTO) 0.1 X10'3 (0-0.2); BASOPHILS % (AUTO) 0.6 % (0-1); EOSINOPHILS % (AUTO) 0 % (0-6); HEMATOCRIT 31.1 % (35.0-45.0); HEMOGLOBIN 10.1 g/dl (12.0-16.0); LYMPHOCYTES # (AUTO) 0.6 X10'3 (1.1-4.8); LYMPHOCYTES % (AUTO) 2.6 % (21-51); MEAN CORPUSCULAR HEMOGLOBIN 27.2 PG (27.0-31.0); MEAN CORPUSCULAR HGB CONC 32.5 g/dL (33.0-36.5); MEAN CORPUSCULAR VOLUME 83.5 FL (78-98); MEAN PLATELET VOLUME 8.9 FL (7.4-10.4); MONOCYTES % (AUTO) 4.6 % (2-12); NEUTROPHILS # (AUTO) 20.3 X10'3 (1.8-7.7); NEUTROPHILS % (AUTO) 92.2 % (42-75); PLATELET COUNT 264 X10'3 (140-440); RED BLOOD COUNT 3.73 X10'6 (4.20-5.60); RED CELL DISTRIBUTION WIDTH 15.2 % (11.5-14.5)
[2023-12-21 19:08] LABS: ABG BASE EXCESS 2.2 mmol/L (-2.0-2.0); ABG HCO3 26.3 mmol/L (22.0-26.0); ABG OXYGEN SATURATION 95.2 % (94-97); ABG PCO2 (T) 39.4 mmHg (32.0-45.0); ABG PH (T) 7.443 (7.350-7.450); ABG PO2 (T) 72.9 mmHg (75.0-100.0); FCOHb 0.7 % (0.0-3.9); FHHb 4.8 % (0.0-5.0); FMetHb 0.3 % (0.0-1.5); FO2Hb 94.2 % (94-97); MODE VENT - SIMV; PEEP 8 cm H2O; RESPIRATORY RATE 14 b/min; TIDAL VOLUME 550 mL; TOTAL HEMOGLOBIN 11.1 G/dl (12.0-16.0)
[2023-12-21 19:17] LABS: ALBUMIN 3.9 G/DL (3.4-5.0); ANION GAP 10 (8-16); BLOOD UREA NITROGEN 10 MG/DL (7-18); BUN/CREATININE RATIO 10.1 (10.0-20.0); CALCIUM 8.9 MG/DL (8.5-10.1); CHLORIDE 107 MMOL/L (99-107); CREATININE 0.99 MG/DL (0.40-0.90); GLUCOSE 104 MG/DL (70-104); PHOSPHORUS 2.9 MG/DL (2.3-4.5); SODIUM 143 MMOL/L (135-145); TOTAL CARBON DIOXIDE 26.5 MMOL/L (24-32); eCRCL 48 ML/MIN; eGFR 57 ML/MIN
[2023-12-21] MEDS: sennosides/docusate sodium tablet PO SCH (20:16)
[2023-12-21] MEDS: atorvastatin 10mg tablet PO SCH (20:16)
[2023-12-21] MEDS: mupirocin 2% nasal ointment 1gm UD NS SCH (20:16)
[2023-12-22] VITALS (40 sets, daily range): BP systolic 87–167; BP diastolic 35–66; PULSE 61–105; RESP 13–32; O2SAT 87–98
[2023-12-22] MEDS: traMADol 50MG tablet PO PRN (00:04)
[2023-12-22 01:07] LABS: BASOPHILS % (AUTO) 0.2 % (0-1); EOSINOPHILS % (AUTO) 0 % (0-6); HEMATOCRIT 30.8 % (35.0-45.0); HEMOGLOBIN 10.2 g/dl (12.0-16.0); LYMPHOCYTES # (AUTO) 1.1 X10'3 (1.1-4.8); LYMPHOCYTES % (AUTO) 5.7 % (21-51); MEAN CORPUSCULAR HEMOGLOBIN 27.2 PG (27.0-31.0); MEAN CORPUSCULAR HGB CONC 32.9 g/dL (33.0-36.5); MEAN CORPUSCULAR VOLUME 82.7 FL (78-98); MEAN PLATELET VOLUME 9.1 FL (7.4-10.4); MONOCYTES # (AUTO) 1.3 X10'3 (0-0.9); MONOCYTES % (AUTO) 6.7 % (2-12); NEUTROPHILS # (AUTO) 16.4 X10'3 (1.8-7.7); NEUTROPHILS % (AUTO) 87.4 % (42-75); PLATELET COUNT 254 X10'3 (140-440); RED BLOOD COUNT 3.73 X10'6 (4.20-5.60); WHITE BLOOD COUNT 18.7 X10'3 (4.5-11.0)
[2023-12-22 01:20] LABS: APTT 26 SECONDS (22-32); INR 1.1 INR; PROTHROMBIN TIME 11.3 SECONDS (9.0-12.0)
[2023-12-22 01:24] LABS: ALANINE AMINOTRANSFERASE 18 U/L (12-78); ALBUMIN 3.6 G/DL (3.4-5.0); ALBUMIN/GLOBULIN RATIO 1.5 (1.1-1.5); ALKALINE PHOSPHATASE 52 IU/L (46-116); ANION GAP 9 (8-16); ASPARTATE AMINO TRANSFERASE 20 U/L (10-37); BILIRUBIN,TOTAL 1.2 MG/DL (0.1-1.0); BLOOD UREA NITROGEN 12 MG/DL (7-18); BUN/CREATININE RATIO 14.3 (10.0-20.0); CALCIUM 8.9 MG/DL (8.5-10.1); CHLORIDE 106 MMOL/L (99-107); CREATININE 0.84 MG/DL (0.40-0.90); GLUCOSE 121 MG/DL (70-104); MAGNESIUM 2.6 MG/DL (1.5-2.4); PHOSPHORUS 4.1 MG/DL (2.3-4.5); SODIUM 141 MMOL/L (135-145); TOTAL CARBON DIOXIDE 26.5 MMOL/L (24-32); eCRCL 57 ML/MIN; eGFR 68 ML/MIN
[2023-12-22] MEDS: HYDROmorphone inj. 0.5 MG/0.5 ML DISP.SYRIN IV PRN ×2 (03:04→16:24)
[2023-12-22 03:41] LABS: ABG BASE EXCESS 1.6 mmol/L (-2.0-2.0); ABG HCO3 25.1 mmol/L (22.0-26.0); ABG PCO2 (T) 36.4 mmHg (32.0-45.0); ABG PH (T) 7.458 (7.350-7.450); ABG PO2 (T) 104.4 mmHg (75.0-100.0); FCOHb 0.4 % (0.0-3.9); FMetHb 0.3 % (0.0-1.5); FO2Hb 97.3 % (94-97); MODE VENT - SIMV; PATIENT TEMPERATURE 37.7; PEEP 10 cm H2O; RESPIRATORY RATE 14 b/min; TIDAL VOLUME 550 mL; TOTAL HEMOGLOBIN 10.9 G/dl (12.0-16.0)
[2023-12-22] MEDS: albumin (Human) 5% 250ml 250 ML IV ONE ×2 (03:52→04:33)
[2023-12-22] MEDS: aspirin 81mg tab.chew PO SCH (07:55)
[2023-12-22] MEDS: metoprolol tartrate 12.5mg (1/2 tablet) PO SCH (07:56)
[2023-12-22 09:35] LABS: ABG BASE EXCESS -0.5 mmol/L (-2.0-2.0); ABG HCO3 22.9 mmol/L (22.0-26.0); ABG OXYGEN SATURATION 93.7 % (94-97); ABG PCO2 (T) 33.6 mmHg (32.0-45.0); ABG PH (T) 7.452 (7.350-7.450); ABG PO2 (T) 70.3 mmHg (75.0-100.0); FCOHb 0.6 % (0.0-3.9); FHHb 6.2 % (0.0-5.0); FMetHb 0.3 % (0.0-1.5); FO2Hb 92.9 % (94-97); MODE VENT - CPAP; PATIENT TEMPERATURE 37.3; PEEP 5 cm H2O; RESPIRATORY RATE 15 b/min; TIDAL VOLUME 405 mL; TOTAL HEMOGLOBIN 10.3 G/dl (12.0-16.0)
[2023-12-22] MEDS: furosemide 20 MG/2 ML vial IV SCH (12:40)
[2023-12-22] MEDS: potassium chloride 8mEq ER tablet PO SCH (12:41)
[2023-12-22] MEDS: guaiFENesin ER 600mg tablet PO SCH (19:14)
[2023-12-22] MEDS: atorvastatin 10mg tablet PO SCH (19:15)
[2023-12-22] MEDS: ondansetron/PF 4mg/2ml inj IV PRN (20:16)
[2023-12-22] MEDS: furosemide 20 MG/2 ML vial IV ONE (20:26)
[2023-12-22] MEDS: metoprolol tartrate 25mg tablet PO ONE (20:27)
[2023-12-22] MEDS: amLODIPine 5mg tablet PO ONE (21:57)
[2023-12-23] VITALS (42 sets, daily range): BP systolic 99–148; BP diastolic 34–59; PULSE 64–88; RESP 16–26; O2SAT 88–95
[2023-12-23] MEDS: acetaminophen 1,000mg/100ml IV 100 ML IV ONE (00:36)
[2023-12-23 03:09] LABS: BASOPHILS # (AUTO) 0.1 X10'3 (0-0.2); BASOPHILS % (AUTO) 0.6 % (0-1); EOSINOPHILS # (AUTO) 0.1 X10'3 (0-0.9); EOSINOPHILS % (AUTO) 0.7 % (0-6); HEMOGLOBIN 10.1 g/dl (12.0-16.0); LYMPHOCYTES # (AUTO) 2.1 X10'3 (1.1-4.8); LYMPHOCYTES % (AUTO) 11.5 % (21-51); MEAN CORPUSCULAR HGB CONC 32.5 g/dL (33.0-36.5); MEAN CORPUSCULAR VOLUME 82.9 FL (78-98); MEAN PLATELET VOLUME 9.1 FL (7.4-10.4); MONOCYTES # (AUTO) 1.9 X10'3 (0-0.9); MONOCYTES % (AUTO) 10.5 % (2-12); NEUTROPHILS % (AUTO) 76.7 % (42-75); PLATELET COUNT 217 X10'3 (140-440); RED BLOOD COUNT 3.74 X10'6 (4.20-5.60); RED CELL DISTRIBUTION WIDTH 15.5 % (11.5-14.5); WHITE BLOOD COUNT 18.3 X10'3 (4.5-11.0)
[2023-12-23 03:22] LABS: ALBUMIN 3.4 G/DL (3.4-5.0); ANION GAP 3 (8-16); BLOOD UREA NITROGEN 16 MG/DL (7-18); BUN/CREATININE RATIO 15.5 (10.0-20.0); CALCIUM 8.9 MG/DL (8.5-10.1); CHLORIDE 100 MMOL/L (99-107); CREATININE 1.03 MG/DL (0.40-0.90); GLUCOSE 105 MG/DL (70-104); MAGNESIUM 1.9 MG/DL (1.5-2.4); POTASSIUM 4.7 MMOL/L (3.5-5.1); SODIUM 134 MMOL/L (135-145); TOTAL CARBON DIOXIDE 30.6 MMOL/L (24-32); eCRCL 46 ML/MIN; eGFR 54 ML/MIN
[2023-12-23] MEDS: furosemide 40mg/4ml inj IV ONE (03:22)
[2023-12-23] MEDS: furosemide inj 100 MG in normal saline 100ml IV soln 90 ML IV SCH (04:04)
[2023-12-23] MEDS: pantoprazole 40mg Tablet.DR PO SCH (07:07)
[2023-12-23] MEDS ORDERED: furosemide 40mg/4ml inj IV SCH (08:00)
[2023-12-23] MEDS: amLODIPine 5mg tablet PO SCH (09:45)
[2023-12-23] MEDS: metoprolol tartrate 25mg tablet PO SCH (09:46)
[2023-12-23] MEDS: potassium Cl 20 mEq SR tablet PO SCH (09:50)
[2023-12-23 11:10] LABS: ALBUMIN 3.7 G/DL (3.4-5.0); ANION GAP 9 (8-16); BLOOD UREA NITROGEN 18 MG/DL (7-18); BUN/CREATININE RATIO 14.8 (10.0-20.0); CALCIUM 9.2 MG/DL (8.5-10.1); CHLORIDE 94 MMOL/L (99-107); CREATININE 1.22 MG/DL (0.40-0.90); GLUCOSE 138 MG/DL (70-104); MAGNESIUM 2.8 MG/DL (1.5-2.4); PHOSPHORUS 4.6 MG/DL (2.3-4.5); POTASSIUM 3.8 MMOL/L (3.5-5.1); SODIUM 132 MMOL/L (135-145); TOTAL CARBON DIOXIDE 28.9 MMOL/L (24-32); eCRCL 39 ML/MIN; eGFR 45 ML/MIN
[2023-12-23] MEDS: HYDROcodone/acetaminophen 5mg/325mg tablet PO PRN (16:13)
[2023-12-23] MEDS: JUVEN Shake w/Arg/Glut/Ca2+Bmb (Juven 19.3gm) pkt 240ml PO SCH (17:50)
[2023-12-23] MEDS: lactose-reduced food (Ensure Enlive) - 237ml bottle PO SCH (17:51)
[2023-12-23 18:24] LABS: ALBUMIN 3.6 G/DL (3.4-5.0); ANION GAP 6 (8-16); BLOOD UREA NITROGEN 23 MG/DL (7-18); BUN/CREATININE RATIO 17.2 (10.0-20.0); CALCIUM 9.3 MG/DL (8.5-10.1); CHLORIDE 97 MMOL/L (99-107); CREATININE 1.34 MG/DL (0.40-0.90); GLUCOSE 115 MG/DL (70-104); MAGNESIUM 2.6 MG/DL (1.5-2.4); PHOSPHORUS 4.6 MG/DL (2.3-4.5); POTASSIUM 5.6 MMOL/L (3.5-5.1); SODIUM 133 MMOL/L (135-145); TOTAL CARBON DIOXIDE 30.5 MMOL/L (24-32); eCRCL 36 ML/MIN; eGFR 40 ML/MIN
[2023-12-23 21:56] LABS: ALBUMIN 3.4 G/DL (3.4-5.0); ANION GAP 7 (8-16); BLOOD UREA NITROGEN 26 MG/DL (7-18); CALCIUM 9.4 MG/DL (8.5-10.1); CHLORIDE 95 MMOL/L (99-107); CREATININE 1.24 MG/DL (0.40-0.90); GLUCOSE 120 MG/DL (70-104); MAGNESIUM 2.2 MG/DL (1.5-2.4); PHOSPHORUS 4.1 MG/DL (2.3-4.5); POTASSIUM 4.5 MMOL/L (3.5-5.1); SODIUM 134 MMOL/L (135-145); TOTAL CARBON DIOXIDE 32.3 MMOL/L (24-32); eCRCL 38 ML/MIN; eGFR 44 ML/MIN
[2023-12-23] MEDS: methylPREDNISolone sod succ/PF 40mg inj. IV SCH (22:09)
[2023-12-24] VITALS (43 sets, daily range): BP systolic 98–170; BP diastolic 40–78; PULSE 71–95; RESP 13–27; O2SAT 85–95
[2023-12-24 02:24] LABS: BASOPHILS % (AUTO) 0.2 % (0-1); EOSINOPHILS # (AUTO) 0.3 X10'3 (0-0.9); EOSINOPHILS % (AUTO) 1.2 % (0-6); HEMATOCRIT 32.4 % (35.0-45.0); HEMOGLOBIN 10.6 g/dl (12.0-16.0); LYMPHOCYTES # (AUTO) 1.1 X10'3 (1.1-4.8); LYMPHOCYTES % (AUTO) 4.6 % (21-51); MEAN CORPUSCULAR HEMOGLOBIN 27.4 PG (27.0-31.0); MEAN CORPUSCULAR HGB CONC 32.7 g/dL (33.0-36.5); MEAN CORPUSCULAR VOLUME 83.9 FL (78-98); MEAN PLATELET VOLUME 9.6 FL (7.4-10.4); MONOCYTES % (AUTO) 4.3 % (2-12); NEUTROPHILS # (AUTO) 20.9 X10'3 (1.8-7.7); NEUTROPHILS % (AUTO) 89.7 % (42-75); PLATELET COUNT 231 X10'3 (140-440); RED BLOOD COUNT 3.86 X10'6 (4.20-5.60); RED CELL DISTRIBUTION WIDTH 15.4 % (11.5-14.5); WHITE BLOOD COUNT 23.3 X10'3 (4.5-11.0)
[2023-12-24 02:35] LABS: ALBUMIN 3.3 G/DL (3.4-5.0); ANION GAP 6 (8-16); BLOOD UREA NITROGEN 28 MG/DL (7-18); BUN/CREATININE RATIO 26.4 (10.0-20.0); CALCIUM 9.3 MG/DL (8.5-10.1); CHLORIDE 95 MMOL/L (99-107); CREATININE 1.06 MG/DL (0.40-0.90); GLUCOSE 116 MG/DL (70-104); PHOSPHORUS 4.5 MG/DL (2.3-4.5); POTASSIUM 4.8 MMOL/L (3.5-5.1); SODIUM 134 MMOL/L (135-145); TOTAL CARBON DIOXIDE 33.5 MMOL/L (24-32); eCRCL 45 ML/MIN; eGFR 52 ML/MIN
[2023-12-24] MEDS: furosemide 40mg/4ml inj IV ONE (03:04)
[2023-12-24 03:18] LABS: ABG BASE EXCESS 6.8 mmol/L (-2.0-2.0); ABG HCO3 31.8 mmol/L (22.0-26.0); ABG OXYGEN SATURATION 86.5 % (94-97); ABG PCO2 (T) 48.5 mmHg (32.0-45.0); ABG PH (T) 7.437 (7.350-7.450); ABG PO2 (T) 55.4 mmHg (75.0-100.0); ALLEN'S TEST Modified; FCOHb 0.7 % (0.0-3.9); FHHb 13.4 % (0.0-5.0); FLOW 30 L/min; FMetHb 0.3 % (0.0-1.5); FO2Hb 85.6 % (94-97); PATIENT TEMPERATURE 37.7; TOTAL HEMOGLOBIN 11.7 G/dl (12.0-16.0)
[2023-12-24 05:50] LABS: ABG BASE EXCESS 6.7 mmol/L (-2.0-2.0); ABG HCO3 31.5 mmol/L (22.0-26.0); ABG OXYGEN SATURATION 87.9 % (94-97); ABG PCO2 (T) 46.3 mmHg (32.0-45.0); ABG PH (T) 7.451 (7.350-7.450); ABG PO2 (T) 55.9 mmHg (75.0-100.0); ALLEN'S TEST Modified; FCOHb 0.6 % (0.0-3.9); FMetHb 0.3 % (0.0-1.5); FO2Hb 87.1 % (94-97); MODE BIPAP; PATIENT TEMPERATURE 37.2; RESPIRATORY RATE 18 b/min; TOTAL HEMOGLOBIN 12.1 G/dl (12.0-16.0)
[2023-12-24] MEDS: piperacillin/tazo 3.375gm/50ml 50 ML IV SCH (06:41)
[2023-12-24] MEDS: furosemide 40mg/4ml inj IV SCH (07:27)
[2023-12-25] VITALS (35 sets, daily range): BP systolic 116–151; BP diastolic 40–75; PULSE 61–90; RESP 13–24; O2SAT 89–96
[2023-12-25 04:11] LABS: BASOPHILS % (AUTO) 0.2 % (0-1); EOSINOPHILS % (AUTO) 0 % (0-6); HEMATOCRIT 34.3 % (35.0-45.0); HEMOGLOBIN 11.2 g/dl (12.0-16.0); LYMPHOCYTES # (AUTO) 1.1 X10'3 (1.1-4.8); LYMPHOCYTES % (AUTO) 5.6 % (21-51); MEAN CORPUSCULAR HEMOGLOBIN 27.1 PG (27.0-31.0); MEAN CORPUSCULAR HGB CONC 32.6 g/dL (33.0-36.5); MEAN CORPUSCULAR VOLUME 83.3 FL (78-98); MEAN PLATELET VOLUME 9.3 FL (7.4-10.4); MONOCYTES # (AUTO) 0.6 X10'3 (0-0.9); NEUTROPHILS # (AUTO) 18.4 X10'3 (1.8-7.7); NEUTROPHILS % (AUTO) 91.2 % (42-75); PLATELET COUNT 301 X10'3 (140-440); RED BLOOD COUNT 4.11 X10'6 (4.20-5.60); RED CELL DISTRIBUTION WIDTH 15.1 % (11.5-14.5); WHITE BLOOD COUNT 20.2 X10'3 (4.5-11.0)
[2023-12-25 04:28] LABS: ALBUMIN 3.3 G/DL (3.4-5.0); ANION GAP 6 (8-16); BLOOD UREA NITROGEN 46 MG/DL (7-18); BUN/CREATININE RATIO 34.3 (10.0-20.0); CALCIUM 9.7 MG/DL (8.5-10.1); CHLORIDE 96 MMOL/L (99-107); CREATININE 1.34 MG/DL (0.40-0.90); GLUCOSE 130 MG/DL (70-104); MAGNESIUM 2.5 MG/DL (1.5-2.4); PHOSPHORUS 4.5 MG/DL (2.3-4.5); POTASSIUM 4.7 MMOL/L (3.5-5.1); SODIUM 135 MMOL/L (135-145); TOTAL CARBON DIOXIDE 33.4 MMOL/L (24-32); eCRCL 36 ML/MIN; eGFR 40 ML/MIN
[2023-12-26] VITALS (37 sets, daily range): BP systolic 114–145; BP diastolic 37–57; PULSE 59–89; RESP 13–21; O2SAT 89–97
[2023-12-26 03:43] LABS: MAGNESIUM 1.9 MG/DL (1.5-2.4); PHOSPHORUS 4.3 MG/DL (2.3-4.5); POTASSIUM 4.8 MMOL/L (3.5-5.1)
[2023-12-26 11:25] LABS: ALBUMIN 3.4 G/DL (3.4-5.0); ANION GAP 6 (8-16); BLOOD UREA NITROGEN 53 MG/DL (7-18); BUN/CREATININE RATIO 36.8 (10.0-20.0); CALCIUM 9.5 MG/DL (8.5-10.1); CHLORIDE 95 MMOL/L (99-107); CREATININE 1.44 MG/DL (0.40-0.90); GLUCOSE 133 MG/DL (70-104); POTASSIUM 4.4 MMOL/L (3.5-5.1); SODIUM 137 MMOL/L (135-145); TOTAL CARBON DIOXIDE 36.2 MMOL/L (24-32); eCRCL 33 ML/MIN; eGFR 37 ML/MIN
[2023-12-26] MEDS: heparin, porcine 5000 units/ml vial SQ SCH (15:13)
[2023-12-26] MEDS: methylPREDNISolone sod succ/PF 40mg inj. IV SCH (21:30)
[2023-12-27] VITALS (37 sets, daily range): BP systolic 111–145; BP diastolic 41–89; PULSE 53–77; RESP 12–23; O2SAT 91–99
[2023-12-27 03:17] LABS: ALBUMIN 3.2 G/DL (3.4-5.0); ANION GAP 5 (8-16); BLOOD UREA NITROGEN 50 MG/DL (7-18); BUN/CREATININE RATIO 39.4 (10.0-20.0); CALCIUM 9.3 MG/DL (8.5-10.1); CHLORIDE 98 MMOL/L (99-107); CREATININE 1.27 MG/DL (0.40-0.90); GLUCOSE 117 MG/DL (70-104); MAGNESIUM 2.6 MG/DL (1.5-2.4); PHOSPHORUS 4.1 MG/DL (2.3-4.5); POTASSIUM 5.5 MMOL/L (3.5-5.1); SODIUM 135 MMOL/L (135-145); TOTAL CARBON DIOXIDE 32.5 MMOL/L (24-32); eCRCL 38 ML/MIN; eGFR 42 ML/MIN
[2023-12-27] MEDS: acetaminophen 325mg tablet PO PRN (21:13)
[2023-12-28] VITALS (23 sets, daily range): BP systolic 92–133; BP diastolic 40–56; PULSE 53–87; RESP 9–23; TEMP 97.5–98.4; O2SAT 91–98
[2023-12-28] MEDS: piperacillin/tazo 3.375gm/50ml 50 ML IV SCH (00:30)
[2023-12-28 02:58] LABS: ANION GAP 6 (8-16); BLOOD UREA NITROGEN 40 MG/DL (7-18); BUN/CREATININE RATIO 35.7 (10.0-20.0); CALCIUM 8.9 MG/DL (8.5-10.1); CHLORIDE 100 MMOL/L (99-107); CREATININE 1.12 MG/DL (0.40-0.90); GLUCOSE 124 MG/DL (70-104); MAGNESIUM 2.1 MG/DL (1.5-2.4); POTASSIUM 4.9 MMOL/L (3.5-5.1); SODIUM 137 MMOL/L (135-145); TOTAL CARBON DIOXIDE 30.8 MMOL/L (24-32); eCRCL 43 ML/MIN; eGFR 49 ML/MIN
[2023-12-28] MEDS ORDERED: potassium Cl 20mEq/100mL bag 100 ML IV PRN (08:20)
[2023-12-28] MEDS ORDERED: potassium Cl 40MEQ/270ML bag 250 ML IV PRN (08:20)
[2023-12-28] MEDS ORDERED: magnesium sulf-water 2g/50mL 50 ML IV PRN (08:20)
[2023-12-28] MEDS ORDERED: potassium CL 10mEq/100ml bag 100 ML IV PRN (08:20)
[2023-12-28] MEDS ORDERED: potassium Cl 20 mEq SR tablet PO PRN ×2 (08:20)
[2023-12-28] MEDS ORDERED: potassium Cl 40MEQ/1/2NS 520ml 520 ML IV PRN (08:20)
[2023-12-28] MEDS ORDERED: magnesium sulf-water 4G/100mL 100 ML IV PRN (08:20)
[2023-12-28] MEDS: magnesium Cl slow-release 64mg tablet PO SCH (20:08)
[2023-12-28] MEDS: ipratropium/albuterol 3ml nebule NEB SCH (20:37)
[2023-12-29] VITALS (14 sets, daily range): BP systolic 93–132; BP diastolic 38–70; PULSE 59–78; RESP 13–23; TEMP 96.4–98; O2SAT 34–95
[2023-12-29 06:57] LABS: BASOPHILS % (AUTO) 0.2 % (0-1); EOSINOPHILS # (AUTO) 0.9 X10'3 (0-0.9); EOSINOPHILS % (AUTO) 3.4 % (0-6); HEMATOCRIT 36.2 % (35.0-45.0); HEMOGLOBIN 11.6 g/dl (12.0-16.0); LYMPHOCYTES # (AUTO) 6.1 X10'3 (1.1-4.8); LYMPHOCYTES % (AUTO) 24.4 % (21-51); MEAN CORPUSCULAR HEMOGLOBIN 27.2 PG (27.0-31.0); MEAN CORPUSCULAR HGB CONC 32.2 g/dL (33.0-36.5); MEAN CORPUSCULAR VOLUME 84.4 FL (78-98); NEUTROPHILS # (AUTO) 16.1 X10'3 (1.8-7.7); PLATELET COUNT 513 X10'3 (140-440); RED BLOOD COUNT 4.29 X10'6 (4.20-5.60); RED CELL DISTRIBUTION WIDTH 15.5 % (11.5-14.5)
[2023-12-29 07:00] LABS: WHITE BLOOD COUNT 25.1 X10'3 (4.5-11.0)
[2023-12-29 07:08] LABS: ALBUMIN 2.9 G/DL (3.4-5.0); ANION GAP 8 (8-16); BLOOD UREA NITROGEN 32 MG/DL (7-18); BUN/CREATININE RATIO 32.7 (10.0-20.0); CALCIUM 8.9 MG/DL (8.5-10.1); CHLORIDE 101 MMOL/L (99-107); CREATININE 0.98 MG/DL (0.40-0.90); GLUCOSE 89 MG/DL (70-104); MAGNESIUM 2.1 MG/DL (1.5-2.4); POTASSIUM 4.4 MMOL/L (3.5-5.1); SODIUM 138 MMOL/L (135-145); TOTAL CARBON DIOXIDE 28.9 MMOL/L (24-32); eCRCL 49 ML/MIN; eGFR 57 ML/MIN
[2023-12-29 07:31] LABS: PLATELET ESTIMATE INCREASED; TOTAL CELLS COUNTED 100
[2023-12-30] VITALS (9 sets, daily range): BP systolic 103–130; BP diastolic 40–82; PULSE 68–80; RESP 17–21; TEMP 97–98.6; O2SAT 93–95
== END 2023-12-30 14:50 | DRG 166 ==
LOC: PAS IN 05:32 → ICU 2S 12:45 → CICU 2S 12-27 07:53 → PCU 3S 12-28 09:54
PROVIDERS: ADMIT Thoracic Surgery (Cardiothoracic Vascular Surgery); ATTEND Thoracic Surgery (Cardiothoracic Vascular Surgery)
PROC: 06BP4ZZ Excision of Right Saphenous Vein, Percutaneous Endoscopic Approach (ICD-10-PCS; 2023-12-21)
PROC: 021109W Bypass Coronary Artery, Two Arteries from Aorta with Autologous Venous Tissue, Open Approach (ICD-10-PCS; 2023-12-21)
PROC: 02HV33Z Insertion of Infusion Device into Superior Vena Cava, Percutaneous Approach (ICD-10-PCS; 2023-12-21)
PROC: 02100Z9 Bypass Coronary Artery, One Artery from Left Internal Mammary, Open Approach (ICD-10-PCS; principal; 2023-12-21 07:55)
PROC: 5A0935A Assistance with Respiratory Ventilation, Less than 24 Consecutive Hours, High Flow/Velocity Cannula (ICD-10-PCS; 2023-12-23)
PROC: 5A09357 Assistance with Respiratory Ventilation, Less than 24 Consecutive Hours, Continuous Positive Airway Pressure (ICD-10-PCS; 2023-12-24)
PROC: 5A0945A Assistance with Respiratory Ventilation, 24-96 Consecutive Hours, High Flow/Velocity Cannula (ICD-10-PCS; 2023-12-24)
PROC: 5A0935A Assistance with Respiratory Ventilation, Less than 24 Consecutive Hours, High Flow/Velocity Cannula (ICD-10-PCS; 2023-12-27)
PROC: 5A0935A Assistance with Respiratory Ventilation, Less than 24 Consecutive Hours, High Flow/Velocity Cannula (ICD-10-PCS; 2023-12-28)
DX: I25.10 Atherosclerotic heart disease of native coronary artery without angina pectoris (principal); J95.821 Acute postprocedural respiratory failure; J44.9 Chronic obstructive pulmonary disease, unspecified; I73.9 Peripheral vascular disease, unspecified; J43.9 Emphysema, unspecified; E78.00 Pure hypercholesterolemia, unspecified; F20.9 Schizophrenia, unspecified; E66.9 Obesity, unspecified; E78.5 Hyperlipidemia, unspecified; F31.9 Bipolar disorder, unspecified; I10 Essential (primary) hypertension; I34.0 Nonrheumatic mitral (valve) insufficiency; I35.1 Nonrheumatic aortic (valve) insufficiency; N39.0 Urinary tract infection, site not specified; Z79.899 Other long term (current) drug therapy; Z87.891 Personal history of nicotine dependence; Z68.33 Body mass index [BMI] 33.0-33.9, adult
CPT/HCPCS: 0232T; 36415; 36600; 71045; 71046; 80048; 80053; 81001; 82330; 82435; 82803; 82947; 82948; 83036; 83735; 84100; 84132; 84295; 85007; 85018; 85025; 85347; 85384; 85610; 85730; 86885; 86900; 86901; 86920; 87070; 87077; 87081; 87088; 87186; 93005; 93312; 93325; 93880; 93970; 94002; 94003; 94010; 94640; 94660; 94664; 94668; 94760; 97110; 97161; 97530; A4314; A4615; A4618; A4620; A6213; A6258; A6402; A6449; A7000; A7015; A7048; C1751; C9290; G0378; J0131; J0171; J0610; J0690; J1170; J1265; J1644; J1720; J1815; J1940; J2060; J2250; J2405; J2543; J2704; J2919; J3010; J3475; J3480; J3490; J7030; J7040; J7050; J7120; P9045

== ENCOUNTER 2024-01-01 18:39 | Inpatient (IN) | payer MEDICAID ==
[~2024-01-01] VITALS: Ht 167.6 cm; Wt 80.0 kg
[2024-01-01 01:50] VITALS: RESP 16; O2SAT 96
[~2024-01-01 18:39] MED LIST changes: -Insulin Reg/NS 100units/100mL 100 ML IV SCH; -dextrose 50%-water 50ml dispensing syringe IV PRN; -insulin glargine (Lantus) pen - multi-dose SQ PRN; -metoprolol tartrate 12.5mg (1/2 tablet) PO ONE
[2024-01-01] MEDS ORDERED: iohexol 350MG/ML 100ml bottle IV ONE (19:01)
[2024-01-01 19:37] LABS: BASOPHILS # (AUTO) 0.2 X10'3 (0-0.2); EOSINOPHILS # (AUTO) 0.7 X10'3 (0-0.9); HEMOGLOBIN 10.5 g/dl (12.0-16.0); LYMPHOCYTES # (AUTO) 3.1 X10'3 (1.1-4.8)
[2024-01-01 19:38] LABS: BASOPHILS % (AUTO) 0.8 % (0-1); EOSINOPHILS % (AUTO) 3.1 % (0-6); HEMATOCRIT 31.6 % (35.0-45.0); LYMPHOCYTES % (AUTO) 13.3 % (21-51); MEAN CORPUSCULAR HEMOGLOBIN 27.9 PG (27.0-31.0); MEAN CORPUSCULAR HGB CONC 33.2 g/dL (33.0-36.5); MEAN PLATELET VOLUME 8.2 FL (7.4-10.4); MONOCYTES # (AUTO) 1.8 X10'3 (0-0.9); MONOCYTES % (AUTO) 7.8 % (2-12); NEUTROPHILS # (AUTO) 17.4 X10'3 (1.8-7.7); PLATELET COUNT 706 X10'3 (140-440); RED BLOOD COUNT 3.76 X10'6 (4.20-5.60); RED CELL DISTRIBUTION WIDTH 15.8 % (11.5-14.5); WHITE BLOOD COUNT 23.2 X10'3 (4.5-11.0)
[2024-01-01 19:45] LABS: ALBUMIN 2.7 G/DL (3.4-5.0); ANION GAP 9 (8-16); BLOOD UREA NITROGEN 21 MG/DL (7-18); BUN/CREATININE RATIO 23.3 (10.0-20.0); CALCIUM 8.7 MG/DL (8.5-10.1); CHLORIDE 100 MMOL/L (99-107); GLUCOSE 96 MG/DL (70-104); POTASSIUM 3.5 MMOL/L (3.5-5.1); SODIUM 134 MMOL/L (135-145); TOTAL CARBON DIOXIDE 25.4 MMOL/L (24-32); eCRCL 60 ML/MIN; eGFR 63 ML/MIN
[2024-01-01 19:50] LABS: APTT 25 SECONDS (22-32); INR 1.1 INR; PROTHROMBIN TIME 11.3 SECONDS (9.0-12.0)
[2024-01-01] MEDS: aspirin 325mg tablet PO ONE (20:31)
[2024-01-01] MEDS: normal saline 1000ml 1,000 ML IV SCH (21:24)
[2024-01-01 22:12] LABS: BILIRUBIN,URINE NEGATIVE (Neg); CLARITY,URINE CLEAR (Clear); COLOR,URINE YELLOW (Yellow); GLUCOSE, URINE NEGATIVE (Neg); KETONES,URINE NEGATIVE (Neg); LEUKOCYTE ESTERASE ,URINE NEGATIVE (Neg); NITRITES, URINE NEGATIVE (Neg); OCCULT BLOOD,URINE NEGATIVE (Neg); PH,URINE 5.5 (4.8-8.0); PROTEIN,URINE NEGATIVE (Neg); UROBILINOGEN,URINE 0.2 E.U/dL (0.2-1.0)
[2024-01-01 22:16] LABS: UA COLLECTION TYPE OTHER
[2024-01-01] MEDS: famotidine 20mg tablet PO SCH (22:49)
[2024-01-02] VITALS (14 sets, daily range): BP systolic 100–125; BP diastolic 42–57; PULSE 89–114; RESP 14–20; TEMP 97.3–98.8; O2SAT 92–98
[2024-01-02] MEDS ORDERED: AMOX-441 PO (00:20)
[2024-01-02] MEDS ORDERED: ATOR20TA66 PO (00:21)
[2024-01-02] MEDS ORDERED: NA P133E4 RC (00:24)
[2024-01-02] MEDS ORDERED: GUAI100L97 PO (00:24)
[2024-01-02] MEDS ORDERED: BISA10SU60 RC (00:24)
[2024-01-02] MEDS ORDERED: [UNRECOGNIZED DRUG - CODE] SQ (00:28)
[2024-01-02] MEDS ORDERED: IPRA3AMP9 IH (00:30)
[2024-01-02] MEDS ORDERED: METO50TA17 PO (00:32)
[2024-01-02] MEDS ORDERED: MAGN400O6 PO (00:32)
[2024-01-02] MEDS ORDERED: HYDR-3965 PO (00:33)
[2024-01-02] MEDS ORDERED: OMEP20CA16 PO (00:36)
[2024-01-02] MEDS ORDERED: ONDA-103 PO (00:36)
[2024-01-02] MEDS ORDERED: SENN-36 PO (00:36)
[2024-01-02] MEDS ORDERED: TRAM50TA2 PO (00:36)
[2024-01-02] MEDS ORDERED: ACET-890 PO (00:38)
[2024-01-02] MEDS: HYDROcodone/acetaminophen 5mg/325mg tablet PO ONE (02:36)
[2024-01-02] MEDS: aspirin 81mg, enteric-coated 1 TAB TABLET.DR PO SCH (07:41)
[2024-01-02] MEDS: atorvastatin 20mg tablet PO SCH (07:41)
[2024-01-02] MEDS: clopidogrel 75mg tablet PO SCH (07:41)
[2024-01-02 07:54] LABS: CHOL/HDL RATIO 3.8 (0.00-4.99); CHOLESTEROL 120 MG/DL (0-200); HDL CHOLESTEROL 32 MG/DL (35-60); LDL CHOLESTEROL 65 MG/DL (50-100); THYROID STIMULATING HORMONE 1.22 ulU/ml (0.34-4.50); TRIGLYCERIDES 143 MG/DL (20-135)
[2024-01-02] MEDS ORDERED: clopidogrel 75mg tablet PO SCH (08:00)
[2024-01-02] MEDS ORDERED: nitroGLYCERIN 0.4mg SUBLingual tab SL PRN (10:35)
[2024-01-02] MEDS ORDERED: acetaminophen 325mg tablet PO PRN (10:35)
[2024-01-02] MEDS ORDERED: traMADol 50MG tablet PO PRN (10:35)
[2024-01-02] MEDS ORDERED: ipratropium/albuterol 3ml nebule IH PRN (10:35)
[2024-01-02] MEDS: HYDROcodone/acetaminophen 5mg/325mg tablet PO PRN (11:01)
[2024-01-02] MEDS: azithromycin 250mg tablet PO SCH (11:04)
[2024-01-02 11:05] LABS: ALBUMIN 2.7 G/DL (3.4-5.0); ANION GAP 7 (8-16); BLOOD UREA NITROGEN 16 MG/DL (7-18); BUN/CREATININE RATIO 19.5 (10.0-20.0); CHLORIDE 105 MMOL/L (99-107); CREATININE 0.82 MG/DL (0.40-0.90); EOSINOPHILS # (AUTO) 0.8 X10'3 (0-0.9); EOSINOPHILS % (AUTO) 3.7 % (0-6); GLUCOSE 94 MG/DL (70-104); HEMOGLOBIN 10.5 g/dl (12.0-16.0); POTASSIUM 4.2 MMOL/L (3.5-5.1); RED CELL DISTRIBUTION WIDTH 15.8 % (11.5-14.5); SODIUM 138 MMOL/L (135-145); TOTAL CARBON DIOXIDE 25.7 MMOL/L (24-32); WHITE BLOOD COUNT 21.5 X10'3 (4.5-11.0); eCRCL 66 ML/MIN; eGFR 70 ML/MIN
[2024-01-02] MEDS: CefTRIAXone/D5W-Rocephin 1gm 50 ML IV SCH (11:05)
[2024-01-02 11:06] LABS: BASOPHILS # (AUTO) 0.2 X10'3 (0-0.2); BASOPHILS % (AUTO) 0.8 % (0-1); HEMATOCRIT 32.6 % (35.0-45.0); LYMPHOCYTES # (AUTO) 2.4 X10'3 (1.1-4.8); LYMPHOCYTES % (AUTO) 11.1 % (21-51); MEAN CORPUSCULAR HEMOGLOBIN 27.6 PG (27.0-31.0); MEAN CORPUSCULAR HGB CONC 32.3 g/dL (33.0-36.5); MEAN CORPUSCULAR VOLUME 85.5 FL (78-98); MEAN PLATELET VOLUME 8.7 FL (7.4-10.4); MONOCYTES % (AUTO) 9.3 % (2-12); NEUTROPHILS # (AUTO) 16.1 X10'3 (1.8-7.7); NEUTROPHILS % (AUTO) 75.1 % (42-75); PLATELET COUNT 738 X10'3 (140-440); RED BLOOD COUNT 3.81 X10'6 (4.20-5.60)
[2024-01-02 11:07] LABS: D-DIMER 3.23 MG/L FEU (0-0.50)
[2024-01-02] MEDS: metoprolol tartrate 50mg tablet PO SCH (13:00)
[2024-01-02] MEDS ORDERED: ondansetron 4mg rapidly disintigrating tab PO PRN (14:00)
[2024-01-02] MEDS: normal saline 500ml IV soln 500 ML IV ONE ×2 (14:55→17:25)
[2024-01-02] MEDS ORDERED: iohexol 350MG/ML 100ml bottle IV ONE (17:47)
[2024-01-02] MEDS: guaiFENesin 200 MG/10 ML oral syrup UD cup PO SCH (19:56)
[2024-01-03] VITALS (10 sets, daily range): BP systolic 98–153; BP diastolic 45–72; PULSE 70–97; RESP 15–19; TEMP 97.4–99.6; O2SAT 90–97
[2024-01-03] MEDS ORDERED: non-formulary drug (Aspirin (Aspir 81) 1 TAB) PO SCH (08:00)
[2024-01-03] MEDS ORDERED: non-formulary drug (Omeprazole 2 CAP) PO SCH (08:00)
[2024-01-03 09:15] LABS: HEMOGLOBIN 10.3 g/dl (12.0-16.0)
[2024-01-03 09:16] LABS: ALANINE AMINOTRANSFERASE 17 U/L (12-78); ALBUMIN 2.8 G/DL (3.4-5.0); ALBUMIN/GLOBULIN RATIO 0.7 (1.1-1.5); ALKALINE PHOSPHATASE 68 IU/L (46-116); ANION GAP 11 (8-16); ASPARTATE AMINO TRANSFERASE 11 U/L (10-37); BILIRUBIN,TOTAL 0.5 MG/DL (0.1-1.0); BLOOD UREA NITROGEN 13 MG/DL (7-18); BUN/CREATININE RATIO 14.6 (10.0-20.0); CALCIUM 9.1 MG/DL (8.5-10.1); CHLORIDE 105 MMOL/L (99-107); CREATININE 0.89 MG/DL (0.40-0.90); GLUCOSE 105 MG/DL (70-104); SODIUM 139 MMOL/L (135-145); TOTAL CARBON DIOXIDE 23.2 MMOL/L (24-32); TOTAL PROTEIN 6.8 G/DL (6.4-8.2); eCRCL 61 ML/MIN; eGFR 64 ML/MIN
[2024-01-03 09:17] LABS: BASOPHILS # (AUTO) 0.2 X10'3 (0-0.2); BASOPHILS % (AUTO) 0.8 % (0-1); EOSINOPHILS # (AUTO) 0.8 X10'3 (0-0.9); EOSINOPHILS % (AUTO) 3.9 % (0-6); HEMATOCRIT 32.1 % (35.0-45.0); LYMPHOCYTES # (AUTO) 2.5 X10'3 (1.1-4.8); LYMPHOCYTES % (AUTO) 12.4 % (21-51); MEAN CORPUSCULAR HEMOGLOBIN 27.2 PG (27.0-31.0); MEAN CORPUSCULAR HGB CONC 32.1 g/dL (33.0-36.5); MEAN CORPUSCULAR VOLUME 84.7 FL (78-98); MONOCYTES # (AUTO) 1.3 X10'3 (0-0.9); MONOCYTES % (AUTO) 6.2 % (2-12); NEUTROPHILS # (AUTO) 15.7 X10'3 (1.8-7.7); NEUTROPHILS % (AUTO) 76.7 % (42-75); PLATELET COUNT 718 X10'3 (140-440); RED BLOOD COUNT 3.78 X10'6 (4.20-5.60); RED CELL DISTRIBUTION WIDTH 16.1 % (11.5-14.5); WHITE BLOOD COUNT 20.5 X10'3 (4.5-11.0)
[2024-01-03] MEDS: metoprolol tartrate 25mg tablet PO SCH (21:03)
[2024-01-04] VITALS (8 sets, daily range): BP systolic 118–150; BP diastolic 51–69; PULSE 73–88; RESP 14–18; TEMP 96.3–98.7; O2SAT 91–96
[2024-01-04 07:55] LABS: BASOPHILS # (AUTO) 0.1 X10'3 (0-0.2); HEMOGLOBIN 9.7 g/dl (12.0-16.0)
[2024-01-04 07:57] LABS: BASOPHILS % (AUTO) 0.8 % (0-1); EOSINOPHILS # (AUTO) 0.7 X10'3 (0-0.9); EOSINOPHILS % (AUTO) 4.6 % (0-6); HEMATOCRIT 29.9 % (35.0-45.0); LYMPHOCYTES # (AUTO) 2.2 X10'3 (1.1-4.8); MEAN CORPUSCULAR HEMOGLOBIN 27.8 PG (27.0-31.0); MEAN CORPUSCULAR HGB CONC 32.6 g/dL (33.0-36.5); MEAN CORPUSCULAR VOLUME 85.3 FL (78-98); MEAN PLATELET VOLUME 8.6 FL (7.4-10.4); MONOCYTES # (AUTO) 1.5 X10'3 (0-0.9); MONOCYTES % (AUTO) 9.2 % (2-12); NEUTROPHILS # (AUTO) 11.4 X10'3 (1.8-7.7); NEUTROPHILS % (AUTO) 71.4 % (42-75); PLATELET COUNT 675 X10'3 (140-440); RED CELL DISTRIBUTION WIDTH 16.2 % (11.5-14.5)
[2024-01-04 08:08] LABS: ALBUMIN 2.5 G/DL (3.4-5.0); ANION GAP 8 (8-16); BLOOD UREA NITROGEN 15 MG/DL (7-18); BUN/CREATININE RATIO 19.5 (10.0-20.0); CALCIUM 9.7 MG/DL (8.5-10.1); CHLORIDE 107 MMOL/L (99-107); CREATININE 0.77 MG/DL (0.40-0.90); GLUCOSE 92 MG/DL (70-104); POTASSIUM 3.8 MMOL/L (3.5-5.1); SODIUM 138 MMOL/L (135-145); TOTAL CARBON DIOXIDE 22.6 MMOL/L (24-32); eCRCL 70 ML/MIN; eGFR 76 ML/MIN
[2024-01-05 02:00] VITALS: BP 108/49; PULSE 78; RESP 18; TEMP 98.4; O2SAT 94
[2024-01-05 06:00] VITALS: BP 117/62; PULSE 87; RESP 19; TEMP 98.7; O2SAT 95
[2024-01-05 07:51] VITALS: PULSE 83; RESP 16; O2SAT 90
[2024-01-05 10:00] VITALS: BP 120/44; PULSE 96; RESP 18; TEMP 97.9; O2SAT 94
[2024-01-05 12:02] VITALS: RESP 16
== END 2024-01-05 13:17 | DRG 47 ==
LOC: ER 18:39 → ED HOLD 20:52 → ORTHO 4S 01-02 01:18
PROVIDERS: ADMIT Internal Medicine Pulmonary Disease; ATTEND Family Medicine
PROC: B3251ZZ Computerized Tomography (CT Scan) of Bilateral Common Carotid Arteries using Low Osmolar Contrast (ICD-10-PCS; 2024-01-01)
PROC: B32G1ZZ Computerized Tomography (CT Scan) of Bilateral Vertebral Arteries using Low Osmolar Contrast (ICD-10-PCS; 2024-01-01)
PROC: B32R1ZZ Computerized Tomography (CT Scan) of Intracranial Arteries using Low Osmolar Contrast (ICD-10-PCS; 2024-01-01)
PROC: B3281ZZ Computerized Tomography (CT Scan) of Bilateral Internal Carotid Arteries using Low Osmolar Contrast (ICD-10-PCS; 2024-01-01)
PROC: B32T1ZZ Computerized Tomography (CT Scan) of Left Pulmonary Artery using Low Osmolar Contrast (ICD-10-PCS; principal; 2024-01-02)
PROC: B3201ZZ Computerized Tomography (CT Scan) of Thoracic Aorta using Low Osmolar Contrast (ICD-10-PCS; 2024-01-02)
PROC: B32S1ZZ Computerized Tomography (CT Scan) of Right Pulmonary Artery using Low Osmolar Contrast (ICD-10-PCS; 2024-01-02)
DX: G45.9 Transient cerebral ischemic attack, unspecified (principal); J96.01 Acute respiratory failure with hypoxia; E78.00 Pure hypercholesterolemia, unspecified; I10 Essential (primary) hypertension; E78.5 Hyperlipidemia, unspecified; D72.829 Elevated white blood cell count, unspecified; D64.9 Anemia, unspecified; G89.29 Other chronic pain; Z88.8 Allergy status to other drugs, medicaments and biological substances; Z88.4 Allergy status to anesthetic agent; Z79.82 Long term (current) use of aspirin; Z90.49 Acquired absence of other specified parts of digestive tract; Z79.899 Other long term (current) drug therapy; Z95.1 Presence of aortocoronary bypass graft; Z98.891 History of uterine scar from previous surgery
CPT/HCPCS: 36415; 70450; 70496; 70498; 70551; 71045; 71275; 80048; 80053; 80061; 81003; 83605; 84145; 84443; 84484; 85025; 85379; 85610; 85730; 87040; 87081; 92508; 92616; 93005; 93308; 94760; 97116; 99285; A4615; G0378; J0696; J7030; J7040; Q9967